=== PATIENT | male | born 1955 | race Caucasian/White ===

== ENCOUNTER 2017-05-24 16:14 | Inpatient (IN) ==
--- OUTSIDE RECORDS SUMMARY | 2017-05-24 16:41 | External Medical Summary | Referral Summary ---
:1955 Author Organization [facility] Address [address] [place] [address] Care Team Providers Name Role Phone Tanvir Mobley Primary Care Physician Encounter VC Date(s): 05/15/16 - 05/15/16 [facility] [address] [place] [address]- us Discharge Diagnosis: Syncope Discharge Diagnosis: Mild depression Discharge Diagnosis: Anxiety Discharge Diagnosis: Memory loss of Discharge Diagnosis: Anemia Discharge Diagnosis: Hypokalemia Discharge Disposition: 01-Home or Self Care Attending Physician: Tanvir Mobley MD Admitting Physician: Tanvir Mobley MD Vital Signs Most recent to oldest [Reference Range]: 1 Peripheral Pulse Rate [60-100 bpm] 80 bpm (05/15/16 2:34 PM) Blood Pressure [90-140/60-90 mmHg] 106/80 mmHg (05/15/16 2:34 PM) Problem List No data available for this section Allergies, Adverse Reactions, Alerts No Known Medication Allergies Medications Centrum Adults 1 tabs, Oral, Daily, Men formula, 0 Refill(s) Start Date: 05/15/16 Status: OrderedNamenda XR 14 mg, Oral, Daily, 0 Refill(s) Start Date: 05/15/16 Status: Orderedsertraline 50 mg oral tablet 50 mg 1 tabs, Oral, Daily, 0 Refill(s) Start Date: 05/15/16 Status: Ordered Results Hematology Most recent to oldest [Reference Range]: 1 WBC [4.8-10.8 10*3/uL] 5.0 10*3/uL (05/15/16 3:46 PM) RBC [4.60-6.20] 4.73 (2/24/17 3:46 PM) Hgb [14.0-18.0 gm/dL] 14.9 gm/dL (05/15/16 3:46 PM) Hct [42.0-52.0 %] 43.1 % (05/15/16 3:46 PM) MCV [82.0-99.0 fL] 91.1 fL (05/15/16 3:46 PM) MCH [27.0-32.0 pg] 31.5 pg (05/15/16 3:46 PM) MCHC [32.0-36.0 gm/dL] 34.6 gm/dL (05/15/16 3:46 PM) RDW [11.5-14.5 %] 13.0 % (05/15/16 3:46 PM) Platelet [150-400 10*3/uL] 170 10*3/uL (05/15/16 3:46 PM) MPV [8.8-14.8 fL] 9.3 fL (05/15/16 3:46 PM) Immature Granulocytes [0.0-1.0 %] 0.0 % (05/15/16 3:46 PM) Neutrophils [51-75 %] 58 % (05/15/16 3:46 PM) Lymphocytes [20-46 %] 29 % (05/15/16 3:46 PM) Monocytes [4-11 %] 9 % (05/15/16 3:46 PM) Eosinophils [0-4 %] 3 % (05/15/16 3:46 PM) Basophils [0-2 %] 1 % (05/15/16 3:46 PM) Neutro Absolute [1.90-7.00] 2.88 (05/15/16 3:46 PM) Lymph Absolute [0.80-3.30] 1.45 (05/15/16 3:46 PM) [place] Absolute [0.30-1.00] 0.47 (05/15/16 3:46 PM) Eos Absolute [0.00-0.50] 0.17 (05/15/16 3:46 PM) Baso Absolute [0.00-0.20] 0.04 (05/15/16 3:46 PM) Chemistry Most recent to oldest [Reference Range]: 1 Sodium Lvl [135-144 mEq/L] 141 mEq/L (05/15/16 3:46 PM) Potassium Lvl [3.5-5.2 mEq/L] 4.3 mEq/L (05/15/16 3:46 PM) Chloride [99-111 mEq/L] 106 mEq/L (05/15/16 3:46 PM) CO2 [23-31 mEq/L] 26 mEq/L (05/15/16 3:46 PM) AGAP [3-20] 9 (05/15/16 3:46 PM) BUN [8-26 mg/dL] 17 mg/dL (05/15/16 3:46 PM) Glucose Lvl [70-99 mg/dL] 80 mg/dL (05/15/16 3:46 PM) Creatinine Lvl [0.72-1.25 mg/dL] 0.93 mg/dL (05/15/16 3:46 PM) eGFR [>60 mL/min] >60 mL/min 1 (05/15/16 3:46 PM) Calcium Lvl [8.4-10.2 mg/dL] 9.2 mg/dL 2 (05/15/16 3:46 PM) Albumin Lvl [3.4-4.8 gm/dL] 4.3 gm/dL (05/15/16 3:46 PM) Total Protein [6.0-7.6 gm/dL] 6.9 gm/dL (05/15/16 3:46 PM) Globulin [1.8-4.0 gm/dL] 2.6 gm/dL (05/15/16 3:46 PM) ALT [0-55 U/L] 47 U/L (05/15/16 3:46 PM) AST [5-34 U/L] 48 U/L *HI* (05/15/16 3:46 PM) Alk Phos [40-150 U/L] 45 U/L (05/15/16 3:46 PM) Bili Total [0.2-1.2 mg/dL] 1.4 mg/dL *HI* (05/15/16 3:46 PM) Vitamin B12 Lvl [213-816 pg/mL] 630 pg/mL (05/15/16 3:46 PM) PSA (wihout Reflex Free) [0.0-4.5 ng/mL] 1.0 ng/mL 3 (05/15/16 3:46 PM) LDL Direct [0-129 mg/dL] 180 mg/dL *HI* (05/15/16 3:46 PM) TSH with Reflex Free T4 [0.35-4.94] 1.38 (05/15/16 3:46 PM) 1Result Comment: Multiply eGFR results by 1.21 for race.2Result Comment: Please note reference range change effective 2016.3Result Comment: AUA PSA Best Practice Guidelines: Age-Adjusted PSA Values by Ethnic Group Age Range Asians - Caucasians Americans 40-49 0-2.0 0-2.0 0-2.5 50-59 0-3.0 0-4.0 0-3.5 60-69 0-4.0 0-4.5 0-4.5 70-79 0-5.0 0-5.5 0-6.5Urinalysis Most recent to oldest [Reference Range]: 1 UA Color Yellow (05/15/16 3:46 PM) UA Appear Clear (05/15/16 3:46 PM) UA pH [5.0-8.0] 7.5 (05/15/16 3:46 PM) UA Leuk Est [Negative] Negative (05/15/16 3:46 PM) UA Nitrite [Negative] Negative (05/15/16 3:46 PM) UA Protein [Negative] Negative (05/15/16 3:46 PM) UA Glucose [Negative] Negative (05/15/16 3:46 PM) UA Ketones [Negative] Negative (05/15/16 3:46 PM) UA Urobilinogen [<1.0 mg/dL] 0.2 mg/dL (05/15/16 3:46 PM) UA Bili [Negative] Negative (05/15/16 3:46 PM) UA Blood [Negative] Negative (05/15/16 3:46 PM) UA Spec Grav [1.003-1.030] 1.019 (05/15/16 3:46 PM) Type Clean Catch (05/15/16 3:46 PM) Immunizations Given and Recorded Vaccine Date Status Refusal Reason tetanus/diphth/pertuss (Tdap) adult/adol 05/15/16 Given Procedures Procedure Date Related Diagnosis Body Site Tonsillectomy and adenoidectomy Social History Social History Type Response Smoking Status Former smoker; Type: Cigarettes; Tobacco use per day: 1/2 pack or more; Number of years: 10; Date Last Use: 2008; Stopped at age: 2008 Assessment and Plan Extracted from: Title: Office Visit Note Author: Tanvir Mobley MD Date: 05/15/16 Assessment/Plan 1.Memory loss of He apparently has some problems with memory loss and the long history of somemental disorderof which a diagnosis is notavailable today. After I completed my workup I will suggest that he establish withpsychiatry somewhere fora definitive diagnosis regarding the concerns for his mental health. I'll see him back in a few weeks to do a many mental state exam and review lab results w ith him. If he indeed assignificant memory loss I'll order an MRI. Ordered: CBC w/ Differential Comprehensive Metabolic Panel LDL Direct Office Visit Level 5 New 76948 Prostate Specific Antigen Return to Clinic RPR TSH with Reflex Free T4 Urinalysis with Culture if Indicated Vitamin B12 Level 2.Anemia I'll recheck the anemia that I noted in his record here. He needs colonoscopy since he's never had one done and his father age 42 colon cancer. Ordered: CBC w/ Differential Comprehensive Metabolic Panel Internal Referral to Gastroenterology LDL Direct Office Visit Level 5 New 46798 Return to Clinic TSH with Reflex Free T4 Vitamin B12 Level 3.Hypokalemia Ordered: Comprehensive Metabolic Panel LDL Direct Office Visit Level 5 New 37001 TSH with Reflex Free T4 Urinalysis with Culture if Indicated 4.Syncope Basic lab workto reevaluate his history of syncopal episode. Ordered: CBC w/ Differential Comprehensive Metabolic Panel LDL Direct Office Visit Level 5 New 73496 TSH with Reflex Free T4 5.Anxiety Anxiety disorder to be addressed at a later date he certainly is in no acutedistress today regarding anxiety. Ordered: LDL Direct Office Visit Level 5 New 39930 Return to Clinic TSH with Reflex Free T4 6.Mild depression Depression to be addressed at a later date as well. We willcontact GI for colonoscopy. Tetanus booster with pertussis today. I did accomplish a comprehensivenew patientchart review,o btaining history, and exam todayand I'll see him back in a few weeks. Ordered: LDL Direct Office Visit Level 5 New 07031 TSH with Reflex Free T4 Referrals to Other Providers Referred by: Tanvir Mobley MD colonoscopy, referred to: Stephanie Almonte III, MD Referred by: Tanvir Mobley MD
--- OUTSIDE RECORDS SUMMARY | 2017-05-24 16:41 | External Medical Summary | Referral Summary ---
:1955 Author Organization [facility] Address [address] [place] [address] Care Team Providers Name Role Phone Tanvir Mobley Primary Care Physician Encounter VC Date(s): 05/29/16 - 05/29/16 [facility] [address] [place] [address]- [place] Discharge Diagnosis: Chest pain Discharge Diagnosis: Pure hypercholesterolemia Discharge Diagnosis: Mild depression Discharge Diagnosis: Anxiety Discharge Diagnosis: Memory loss of Discharge Disposition: 01-Home or Self Care Attending Physician: Tanvir Mobley MD Admitting Physician: Tanvir Mobley MD Vital Signs Most recent to oldest [Reference Range]: 1 Peripheral Pulse Rate [60-100 bpm] 80 bpm (05/29/16 1:37 PM) Blood Pressure [90-140/60-90 mmHg] 134/84 mmHg (05/29/16 1:37 PM) Problem List No data available for this section Allergies, Adverse Reactions, Alerts No Known Medication Allergies Medications Centrum Adults 1 tabs, Oral, Daily, Men formula, 0 Refill(s) Start Date: 05/15/16 Status: OrderedNamenda XR 14 mg, Oral, Daily, 0 Refill(s) Start Date: 05/15/16 Status: Orderedsertraline 50 mg oral tablet 50 mg 1 tabs, Oral, Daily, 0 Refill(s) Start Date: 05/15/16 Status: Ordered Results No data available for this section Immunizations Given and Recorded Vaccine Date Status [...] Visit Note Author: Tanvir Mobley MD Date: 05/29/16 Assessment/Plan 1.Memory loss of He appears to have significant short-term memory loss and is not oriented. He is on Namenda at 14 mg. His sister we'll check with the [facility] to try and get this increased to 21 m g. I'll recheck him in this regard in 4 months. Ordered: Office Visit Level 4 Est 48374 Return to Clinic 2.Chest pain He probably deserves a stress test in regards to his atypical chest pain. We will ask for astandardstress treadmill test. I'll let him know the results. Ordered: Office Visit Level 4 Est 88565 Request for Cardiovascular Stress Test Return to Clinic 3.Anxiety The anxiety disorder will be followed up by the [facility]. Ordered: Office Visit Level 4 Est 25166 Return to Clinic 4.Pure hypercholesterolemia I did tell him to consider a statin drug for his hypercholesterolemia. He did not agree to starting this today. Ordered: Office Visit Level 4 Est 76067 Return to Clinic 5.Mild depression He'll continue his generic Zoloft for this and follow-up at the [facility]. Ordered: Office Visit Level 4 Est 44020 Return to Clinic Referrals to Other Providers Referred by: Tanvir Mobley MD
--- OUTSIDE RECORDS SUMMARY | 2017-05-24 16:41 | External Medical Summary | Referral Summary ---
:1955 Author Organization [facility] Address [address] [place] [address] Care Team Providers Name Role Phone No PCP, Pt States Primary Care Physician Encounter [facility] [id number] Date(s): 01/12/16 - 01/12/16 [facility] [address] [address], [place] [address] Discharge Diagnosis: Panic attacks Discharge Diagnosis: Confusion Discharge Diagnosis: Confusion Discharge Diagnosis: Panic attacks Discharge Disposition: 01-Home or Self Care Attending Physician: Afshin Marie MD Admitting Physician: Afshin Marie MD Vital Signs Most recent to oldest [Reference Range]: 1 Temperature Oral [35.8-37.3 degC] 36.3 degC (01/12/16 5:09 PM) Peripheral Pulse Rate [60-100 bpm] 98 bpm (01/12/16 8:02 PM) Respiratory Rate [14-20 br/min] 18 br/min (01/12/16 8:02 PM) Blood Pressure [90-140/60-90 mmHg] 126/82 mmHg (01/12/16 8:02 PM) SpO2 98 % (01/12/16 8:02 PM) Problem List No data available for this section Allergies, Adverse Reactions, Alerts No data available for this section Medications No data available for this section Results Hematology Most recent to oldest [Reference Range]: 1 WBC [4.8-10.8 10*3/uL] 4.7 10*3/uL *LOW* (01/12/16 6:37 PM) RBC [4.60-6.20] 4.23 *LOW* (01/12/16 6:37 PM) Hgb [14.0-18.0 gm/dL] 13.5 gm/dL *LOW* (01/12/16 6:37 PM) Hct [42.0-52.0 %] 37.9 % *LOW* (01/12/16 6:37 PM) MCV [82.0-99.0 fL] 89.6 fL (01/12/16 6:37 PM) MCH [27.0-32.0 pg] 31.9 pg (01/12/16 6:37 PM) MCHC [32.0-36.0 gm/dL] 35.6 gm/dL (01/12/16 6:37 PM) RDW [11.5-14.5 %] 12.7 % (01/12/16 6:37 PM) Platelet [150-400 10*3/uL] 152 10*3/uL (01/12/16 6:37 PM) MPV [9.4-12.3 fL] 9.1 fL *LOW* (01/12/16 6:37 PM) Immature Granulocytes [0.0-1.0 %] 0.0 % (01/12/16 6:37 PM) Neutrophils [51-75 %] 70 % (01/12/16 6:37 PM) Lymphocytes [20-46 %] 20 % (01/12/16 6:37 PM) Monocytes [4-11 %] 8 % (01/12/16 6:37 PM) Eosinophils [0-4 %] 2 % (01/12/16 6:37 PM) Basophils [0-2 %] 0 % (01/12/16 6:37 PM) Neutro Absolute [1.90-7.00 10*3] 3.28 10*3 (01/12/16 6:37 PM) Lymph Absolute [0.80-3.30 10*3] 0.94 10*3 (01/12/16 6:37 PM) [place] Absolute [0.30-1.00 10*3] 0.35 10*3 (01/12/16 6:37 PM) Eos Absolute [0.00-0.50 10*3] 0.07 10*3 (01/12/16 6:37 PM) Baso Absolute [0.00-0.20 10*3] 0.02 10*3 (01/12/16 6:37 PM) Chemistry Most recent to oldest [Reference Range]: 1 Sodium Lvl [136-144 mEq/L] 138 mEq/L (01/12/16 6:37 PM) Potassium Lvl [3.6-5.1 mEq/L] 3.4 mEq/L *LOW* (01/12/16 6:37 PM) Chloride [99-109 mEq/L] 103 mEq/L (01/12/16 6:37 PM) CO2 [22-32 mEq/L] 25 mEq/L (01/12/16 6:37 PM) AGAP [3-20] 10 (01/12/16 6:37 PM) BUN [4-20 mg/dL] 12 mg/dL (01/12/16 6:37 PM) Glucose Lvl [70-100 mg/dL] 88 mg/dL (01/12/16 6:37 PM) Creatinine Lvl [0.64-1.27 mg/dL] 0.97 mg/dL (01/12/16 6:37 PM) eGFR [>60] >60 1 (01/12/16 6:37 PM) Calcium Lvl [8.6-10.0 mg/dL] 8.8 mg/dL (01/12/16 6:37 PM) Albumin Lvl [3.5-4.8 gm/dL] 4.2 gm/dL (01/12/16 6:37 PM) Total Protein [6.1-7.9 gm/dL] 6.6 gm/dL (01/12/16 6:37 PM) Globulin [1.9-4.3 gm/dL] 2.4 gm/dL (01/12/16 6:37 PM) ALT [17-63 U/L] 22 U/L (01/12/16 6:37 PM) AST [15-41 U/L] 29 U/L (01/12/16 6:37 PM) Alk Phos [26-104 U/L] 35 U/L (01/12/16 6:37 PM) Bili Total [0.2-1.2 mg/dL] 2.4 mg/dL 2 *HI* (01/12/16 6:37 PM) 1Result Comment: Multiply eGFR results by 1.21 for race.2Result Comment: Naproxen, specifically the metabolite O-desmethylnaproxen, may cause spurious elevation in Total Bilirubin levels.Toxicology Most recent to oldest [Reference Range]: 1 Ethanol Lvl None Detected (01/12/16 6:37 PM) Immunizations No data available for this section Procedures No data available for this section Social History Social History Type Response Smoking Status Former smoker Assessment and Plan No data available for this section
--- OUTSIDE RECORDS SUMMARY | 2017-05-24 16:42 | External Medical Summary | Continuity of Care Document ---
:1955 Demographics x Preferred Language Unknown Marital Status Unknown Adventist Affiliation Unknown Race Unknown Ethnic Group Unknown Author Organization [facility] Allergies Active Description Code Type Severity Reaction Onset Reported/ Identified Relationship Clinical to Patient Status Yes No Known NKA MED N/A N/A 01/13/2016 Allergies Medications Medication Packaging Start Date Stop Date Route Dosage Sig 01/13/2016 ORAL 50MG Sertraline HCl 7 Take 1 po 50 MG Oral daily in the Tablet am. 01/13/2016 ORAL 5MG Namenda 5 MG 7 Take 1 po Oral Tablet daily X 3-5 days, then increase to BID dosing. 02/17/2016 ORAL 50MG Sertraline HCl 7 Take 1 po 50 MG Oral daily in the Tablet am. 04/20/2016 ORAL 50MG Sertraline HCl 7 Take 1 po 50 MG Oral daily in the Tablet am. 06/26/2016 ORAL 50MG Sertraline HCl 7 Take 1 po 50 MG Oral daily in the Tablet am. 09/23/2016 ORAL 50MG Sertraline HCl 7 Take 1 po 50 MG Oral daily in the Tablet am. 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, Batch disorder, recurrent severe without psychotic features 01/10/2016 F G31.84 Mild cognitive Payton Mullen impairment, so stated 01/10/2016 F J45.31 Mild persistent Payton Mullen asthma with (acute) exacerbation 01/10/2016 F R25.1 Tremor, unspecified Payton Mullen 01/10/2016 F Z59.6 Low income Payton Mullen 01/10/2016 F Z59.7 Insufficient social Payton Mullen insurance and welfare support 01/10/2016 F Z63.4 Disappearance and Patyon Mullen of family member 01/10/2016 F Z65.8 Other specified Payton Mullen problems related to psychosocial circumstances 01/13/2016 F 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 J Luis Martinez L disorder, recurrent severe without psychotic features 01/13/2016 F G31.84 Mild cognitive J Luis Martinez L impairment, so stated 01/13/2016 F J45.31 Mild persistent J Luis Martinez L asthma with (acute) exacerbation 01/13/2016 F Z59.6 Low income J Luis Martinez L 01/13/2016 F G31.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 cognitive Psy, Batch impairment, so stated 01/13/2016 F J45.31 Mild persistent Psy, Batch asthma with (acute) exacerbation 01/13/2016 F Z59.6 Low income Psy, Batch 01/14/2016 F 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, Batch disorder, recurrent severe without psychotic features 01/14/2016 F G31.84 Mild cognitive Payton Mullen Darlene impairment, so stated 01/14/2016 F J45.31 Mild persistent Payton Mullen asthma with (acute) exacerbation 01/14/2016 F R25.1 Tremor, unspecified Payton Mullen Darlene 01/14/2016 F Z59.6 Low income Payton Mullen Darlene 01/14/2016 F Z59.7 Insufficient social Payton Mullen insurance and welfare support 01/14/2016 F Z63.4 Disappearance and Payton Mlulen of family member 01/14/2016 F Z65.8 Other specified MullenPayton Darlene problems related to psychosocial circumstances 02/17/2016 F 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 Serna, Suyapa disorder, recurrent severe without psychotic features 02/17/2016 F G31.84 Mild cognitive Serna, Suyapa impairment, so stated 02/17/2016 F J45.31 Mild persistent Serna, Usyapa asthma with (acute) exacerbation 02/17/2016 F Z59.6 Low income Serna, Suyapa 02/17/2016 F G31.84 Mild cognitive Psy, Batch impairment, so stated 02/17/2016 F J45.31 Mild persistent Psy, Batch asthma with (acute) exacerbation 02/17/2016 F Z59.6 Low income Psy, Batch 02/17/2016 F 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, Batch disorder, recurrent severe without psychotic features 02/17/2016 F G31.84 Mild cognitive Payton Mullen impairment, so stated 02/17/2016 F J45.31 Mild persistent Payton Mullen asthma with (acute) exacerbation 02/17/2016 F R25.1 Tremor, unspecified Shadia Mullencam Colon 02/17/2016 F Z59.6 Low income Payton Mullen Darlene 02/17/2016 F Z59.7 Insufficient social Payton Mullen insurance and welfare support 02/17/2016 F Z63.4 Disappearance and Shadia Mullencam Colon of family member 02/17/2016 F Z65.8 Other specified Shadia Mullencam Colon problems related to psychosocial circumstances 04/20/2016 F 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 Serna, Suyapa disorder, recurrent severe without psychotic features 04/20/2016 F G31.84 Mild cognitive Serna, Suyapa impairment, so stated 04/20/2016 F J45.31 Mild persistent Serna, Suyapa asthma with (acute) exacerbation 04/20/2016 F Z59.6 Low income Serna, Suyapa 04/20/2016 F G31.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 cognitive Psy, Batch impairment, so stated 04/20/2016 F J45.31 Mild persistent Psy, Batch asthma with (acute) exacerbation 04/20/2016 F Z59.6 Low income Psy, Batch 04/22/2016 F 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, Batch disorder, recurrent severe without psychotic features 06/26/2016 F 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 Serna, Syuapa disorder, recurrent severe without psychotic features 06/26/2016 F G31.84 Mild cognitive Serna, Suyapa impairment, so stated 06/26/2016 F J45.31 Mild persistent Serna, Suyapa asthma with (acute) exacerbation 06/26/2016 F Z59.6 Low income Serna, Suyapa 06/26/2016 F G31.84 Mild cognitive Psy, Batch impairment, so stated 06/26/2016 F J45.31 Mild persistent Psy, Batch asthma with (acute) exacerbation 06/26/2016 F Z59.6 Low income Psy, Batch 06/26/2016 F 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, Batch disorder, recurrent severe without psychotic features 09/23/2016 F 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 Melugin, Vickie disorder, recurrent R severe without psychotic features 09/23/2016 F G31.84 Mild cognitive Melugin, Vickie impairment, so R stated 09/23/2016 F J45.31 Mild persistent Melugin, Vickie asthma with (acute) R exacerbation 09/23/2016 F R25.1 Tremor, unspecified Melugin, Vickie R 09/23/2016 F Z59.6 Low income Melugin, Vickie R 09/23/2016 F Z59.7 Insufficient social Melugin, Vickie insurance and R welfare support 09/23/2016 F Z63.4 Disappearance and Melugin, Vickie of family R member 09/23/2016 F Z65.8 Other specified Melugin, Vickie problems related to R psychosocial circumstances 09/23/2016 F 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 West, Aspen M disorder, recurrent severe without psychotic features 09/23/2016 F G31.84 Mild cognitive West, Aspen M impairment, so stated 09/23/2016 F J45.31 Mild persistent West, Aspen M asthma with (acute) exacerbation 09/23/2016 F Z59.6 Low income Aspen Bonilla M 09/23/2016 F 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, Batch disorder, recurrent severe without psychotic features 09/23/2016 F G31.84 Mild cognitive Psy, Batch impairment, so stated 09/23/2016 F J45.31 Mild persistent Psy, Batch asthma with (acute) exacerbation 09/23/2016 F Z59.6 Low income Psy, Batch Procedures Code Description [place] [address] Payton Mullen 01/10/2016 22003 Payton Mullen 01/10/2016 22342 Lona Parra 01/13/2016 OFFICE/OUTPAT[place] [address] Melugin, Vickie R 02/17/2016 OFFICE/OUTPATIENT [place], [place] 21766 Melugin, Vickie R 02/17/2016 OFFICE/OUTPATIENT VISIT, [place] 42869 Melugin, Vickie R 04/20/2016 OFFICE/OUTPATIENT [place], [place] 47257 Melugin, Vickie R 04/20/2016 OFFICE/OUTPATIENT VISIT, EST 46856 Melugin, Vickie R 06/26/2016 OFFICE/OUTPATIENT VISIT, EST 91977 Vickie Valdez 06/26/2016 OFFICE/OUTPATIENT VISIT, [place] 22494 Vickie Valdez 09/23/2016 OFFICE/OUTPATIENT VISIT, [place] 64363 Vickie Valdez 09/23/2016 OFFICE/OUTPATIENT VISIT, EST Results There is no data. Encounters ACCT No. Visit Discharge Status Pt. Type Provider Facility Loc./Unit Complaint Date/Time [id number] 09/23/2016 09/23/2016 DIS Unknown 13:40:00 14:00:00
--- NOTE | 2017-05-24 17:32 | Emergency Department Report ---
Medical Clearance HPI - General Chief complaint: Medical Clearance Stated complaint: [facility] Clear[facility] Time Seen by Provider: 05/24/17 17:10 Source: RN notes reviewed, other Mode of arrival: ambulatory Limitations: no limitations - History of Present Illness HPI Narrative: Pt presents from OR for medical clearance for admit to [facility]. [facility] has already approved admission. Pt has been having some aggressive behavior towards other residents and has been increasingly argumentative for a few weeks. Pt fell at OR 4 days ago with superficial injuries to his face which was evaluated by OR staff at that time. Pt complained of right rib pain to nursing staff that when evaluated is questionable for shingles. MD complaint: medical clearance requested Home medications: Home Medications Medication Instructions Recorded Confirmed ALPRAZolam [Xanax] 0.5 mg PO BID PRN 05/24/17 05/24/17 Acetaminophen [Tylenol] 650 mg PO Q4H PRN 05/24/17 05/24/17 CALCIUM CARBONATE Chewable [Tums] 1,000 mg PO TID PRN 05/24/17 05/24/17 Memantine HCl [Namenda Xr] 14 mg PO DAILY 05/24/17 05/24/17 Milk of Magnesia [Mom] 45 ml PO DAILY PRN 05/24/17 05/24/17 Multivit-Min/FA/Lycopen/Lutein 1 each PO DAILY 05/24/17 05/24/17 [Certavite Sr-Antioxidant Tab] Sertraline [Zoloft] 50 mg PO DAILY 05/24/17 05/24/17 Allergies/Adverse reactions: Allergies Allergy/AdvReac Type Severity Reaction Status Date / Time No Known Allergies Allergy Verified 05/24/17 16:45 Review of Systems Limitations: ROS unobtainable due to patient's medical condition [facility] Patient Stated Medical History Dementia Yes Depression Yes Physical Exam Pt with flat affect and gives limited answers to questions - General General appearance: alert, in no apparent distress - Normal Exams: Eyes:: Pupils are PERRLA w/ EOMI Neck:: Full range of motion, without adenopathy Chest/Respirations:: Clear all david, with good airflow, and symmetry bilaterally Cardiovascular:: Regular rate and rhythm, without murmur or gallop, Pulses 2+ all extremities, capillary refill, <2 seconds all extremities Abdomen:: Bowel sounds positive, soft, non-tender, non-distended Musculoskeletal:: No tenderness, or deformity noted, good range of motion, all extremities Integumentary:: No rashes Neurological:: Patient is alert, and oriented, cranial nerves, motor/sensory/ cerebellar, exams w/o gross deficits, to observation Psychiatric:: Patient exhibits, appropriate attention, emotion and affect - Expanded Head Exam Head exam physical: Present: abrasion, contusion (to forehead, nose and right eye) - Skin Skin exam: Present: warm, dry - Expanded Skin Exam Type of lesion: Present: rash Distribution: chest, back Description: Present: blisters, crusting. Absent: discharge (Rash extends from mid thoracic spine to right ribs. Consistent with shingles) Course Vital Signs Temperature 97.9 F 05/24/17 16:28 Pulse Rate 73 05/24/17 16:28 Respiratory Rate 14 05/24/17 16:28 Blood Pressure 116/70 05/24/17 16:28 Pulse Oximetry 94 05/24/17 16:28 Temperature 97.9 F 05/24/17 16:28 Pulse Rate 67 05/24/17 17:47 Respiratory Rate 16 05/24/17 17:47 Blood Pressure 119/70 05/24/17 17:47 Pulse Oximetry 95 05/24/17 17:47 Medical Clearance - [facility] Narrative Medical decision making narrative: Lab and CT results reviewed. Discussed shingles diagnosis with hospitalist to determine if OK to go to [facility] with shingles which was approved. Pt does not note any active pain with palpation to shingles rash leading to questions of length of presence although OR staff does not report any notation of rash. CT head performed to rule out traumatic bleed 2/2 fall, noted to be negative for acute findings. Pt to transfer to [facility] - Differential Diagnosis Likely: urinary tract infection (depression, anxiety, dementia, SAB) - Lab Data Attestation: I reviewed the patient's lab results. Result diagrams: 05/24/17 17:05/24/17 17: Lab Results 05/24/17 05/24/17 05/24/17 Range/Units 17: 17:05 17:05 WBC 5.2 (4.5-11.0) T/MM3 RBC 4.27 L (4.50-5.90) M/MM3 Hgb 13.3 L (13.5-17.5) GM/DL Hct 38.7 L (41-53) % MCV 90.6 (80-100) UM3 MCH 31.1 (26-34) UUG MCHC 34.4 (31-37) GM/DL RDW Std Deviation 44.0 (36.9-50.2) FL Plt Count 162 (130-400) T/MM3 MPV 8.8 L (9.4-12.4) UM3 Immature Gran % (Auto) Not performed Neut % (Auto) Not performed Lymph % (Auto) Not performed [place] % (Auto) Not performed Eos % (Auto) Not performed Baso % (Auto) Not performed Neut # (Auto) Not performed Lymph # (Auto) Not performed [place] # (Auto) Not performed Eos # (Auto) Not performed Baso # (Auto) Not performed Abs Immat Gran (auto) Not performed Neutrophils % (Manual) 62.0 (33-66) % Band Neutrophils % 1.0 (0-6) % Lymphocytes % (Manual) 21.0 L (23-45) % Monocytes % (Manual) 13.0 H (0-9.0) % Eosinophils % (Manual) 3.0 (0-4) % Neutrophils # (Manual) 3.2 (1.8-7.7) T/MM3 Band Neutrophils # 0.1 T/MM3 Lymphocytes # (Manual) 1.1 (1-4.8) T/MM3 Monocytes # (Manual) 0.7 (0-0.8) T/MM3 Eosinophils # (Manual) 0.2 (0-0.5) T/MM3 RBC Morph Comment Normal Turbidity < 20 (0-20) Sodium 142 (134-144) MEQ/L Potassium 4.6 (3.6-5) MEQ/L Chloride 103 (98-107) MEQ/L Carbon Dioxide 29 (22-30) MEQ/L Anion Gap 10 (5-15) MEQ/L BUN 18.0 (9-20) MG/DL Creatinine 1.0 (0.8-1.5) mg/dL GFR Calculation 76 BUN/Creatinine Ratio 18 (6-26) RATIO Glucose 99 (75-110) MG/DL Calculated Osmolality 275 (261-280) MOSM/KG Calcium 9.1 (8.4-10.2) MG/DL Total Bilirubin 1.00 (0.20-1.30) MG/DL Icterus Index < 2 (0-7) AST 28 (17-59) U/L ALT 38 (21-72) U/L Alkaline Phosphatase 50 (38-126) U/L Total Protein 7.7 (6.3-8.2) g/dL Albumin 4.2 (3.5-5.0) g/dL Globulin 3.5 (2.4-3.6) G/DL Albumin/Globulin Ratio 1.2 (1.1-2.2) RATIO Specimen Hemolysis < 15 (0-25) Ur Collection Type Urine, cath straight Urine Color Yellow (YELLOW) Urine Clarity Clear Urine pH 5.5 (5.0-8.0) Ur Specific [place] 1.025 (1.015-1.025) Urine Protein Negative (NEGATIVE) Urine Glucose (UA) Negative (NEGATIVE) Urine Ketones Negative (NEGATIVE) Urine Occult Blood 1+ A (NEGATIVE) Urine Nitrate Negative (NEGATIVE) Urine Bilirubin Negative (NEGATIVE) Urine Urobilinogen 0.2 (NORMAL) EU/DL Ur Leukocyte Esterase Negative (NEGATIVE) Urine RBC 0-1 (0-3) /HPF Urine WBC 3-5 (0-5) /HPF Ur Squamous Epith Cells 0-5 Urine Bacteria Trace H (NEGATIVE) Ur Culture Indicated? Cult not indicated - Radiology Data Attestation: I reviewed the patient's radiology results. (read per V rad) Disposition Clinical Impression: Aggressive behavior Shingles Qualifiers: Herpes zoster complications: without complications Qualified Code(s): B02.9 - Zoster without complications Disposition: 65 To [facility] Condition: Stable Prescriptions: No Action Acetaminophen [Tylenol] 650 mg PO Q4H PRN PRN Reason: Pain Sertraline [Zoloft] 50 mg PO DAILY ALPRAZolam [Xanax] 0.5 mg PO BID PRN PRN Reason: Anxiety Memantine HCl [Namenda Xr] 14 mg PO DAILY Milk of Magnesia [Mom] 45 ml PO DAILY PRN PRN Reason: Constipation CALCIUM CARBONATE Chewable [Tums] 1,000 mg PO TID PRN PRN Reason: Prn Orders Multivit-Min/FA/Lycopen/Lutein [Certavite Sr-Antioxidant Tab] 1 each PO DAILY Time of Disposition: 18:47 - Seen By: midlevel
[2017-05-24] MEDS ORDERED: HALOPERIDOL 0.5 MG TABLET PO PRN (19:16)
[2017-05-24] MEDS ORDERED: LORazepam 0.5 MG TABLET PO PRN (19:16)
[2017-05-24] MEDS ORDERED: ACETAMINOPHEN 325 MG TABLET PO PRN (19:16)
[2017-05-24] MEDS ORDERED: HALOPERIDOL 5 MG/ML INJECTION IM PRN (19:16)
[2017-05-24] MEDS ORDERED: ALPRAZolam 0.5 MG TABLET PO PRN (19:16)
[2017-05-24] MEDS ORDERED: CALCIUM CARBONATE Chewable 500mg TABLET PO PRN (19:16)
[2017-05-24 19:22] VITALS: BMI 32.3
--- NOTE | 2017-05-25 08:01 | CT Scan Report ---
Indication: fall PROCEDURE: CT head/brain wo con: Encounter: Initial Comparison: None Technique: Axial CT images through the head were performed without contrast. Iterative Reconstruction dose reducing technique was utilized. FINDINGS: The ventricles are of normal size, shape, and configuration for the patient's age. Cavum septa pellucidum noted incidentally. There is no evidence of acute intracranial hemorrhage, midline displacement, or mass effect. There are scattered areas of low attenuation in the white matter which most likely represent changes of chronic microvascular ischemia. The CT attenuation of the brain parenchyma is otherwise normal within the cerebellum, brain stem, and cerebral hemispheres. The tympanic cavities and mastoid air cells are free of appreciable disease. There are no definite fractures of the skull base, calvarium, or visualized portion of the midface. IMPRESSION: No CT evidence of acute traumatic intracranial injury. There is a preliminary report by [facility]. .
--- NOTE | 2017-05-25 08:27 | History & Physical Report ---
History of Present Illness Date: 05/29/17 Chief complaint: "Trying to find something to do" HPI: Daniel Phipps is a 61 y/o male w/ a hx of dementia, admitted to [facility] on 05/24 from [facility] for exhibiting child-like behavior ie pouring milk on people's plates and throwing food. He has also been aggressive towards other residents and rude to staff. He was medically cleared through [facility], with lab work and CT head. Labs were overwhelmingly unremarkable with the exception of mild normocytic anemia. CT head upon this providers review failed to show any acute abnormalities, though official report is pending at the time of this H&P. Daniel was seen during breakfast time. He had healing abrasions and scabbed lesions to his face, primarily around his right eye, nose, and right forehead - though he was unable to comment on this. (Nursing staff report a fall on 05/21/17. ) He has a very flat and depressed affect and doesn't make good eye contact. He frequently endorses comments such as "I'm just an old man, trying to find something to do" and "I'm old and slow". He reports that he worked at [employer] from 1986 until 6 months ago, and was let go unexpectedly. He reports that he wishes he had the money back from all his years smoking. He denied any recent illnesses, fever or chills. He states that his appetite has been good (though he was observed just pushing his pancake around on his plate this morning) but occasionally has some ill-defined abdominal pain. He states that he's had chest pain twice in his life but he denies heart cath. He denies difficulty breathing. He states that his legs sometimes are swollen. He states that he's had the "normal" surgeries. He denied any medical problems. Review of Systems ROS unobtainable: due to mental status (poor historian) - Constitutional Constitutional: Absent: chills, fever(s) - EENMT Eyes: Absent: change in vision Nose: Absent: obstruction Mouth/Throat: Absent: sore throat, changes in swallowing - Cardiovascular Cardiovascular: Present: chest pain Vascular: Present: pedal edema - Respiratory Respiratory: Absent: cough, dyspnea - Gastrointestinal Gastrointestinal: Present: abdominal pain. Absent: constipation, diarrhea, nausea, vomiting - Genitourinary Genitourinary: Absent: dysuria - Musculoskeletal Musculoskeletal: Absent: muscle weakness - Integumentary/Breasts Integumentary: Present: wounds (facial wounds healing) - Neurological Neurological: Present: as per HPI - Psychiatric Psychiatric: Present: behavioral changes, depression - Endocrine Endocrine: Absent: flushing Past Medical History Hypercholesterolemia Depression Dementia Anxiety Obesity, BMI 32.4 Surgical History: Colonoscopy (07/2016). Tonsillectomy & adenoidectomy. Possible appendectomy Family History Updates: Patient reports that his father -- he was a smoker. His mother is still alive and doing well. His siblings are healthy except one sister is a smoker. Review of Dr. Mobley's records show that his father had colon cancer, mother had depression, and sister with HTN. - Social History Smoking status: Former smoker (1/2 ppd x 10 years, quit smoking in 2008) Substance use type: marijuana (pt reported he's smoked marijuana twice but in his record it indicates 1-2 times per week) Alcohol intake frequency: does not drink Current occupational status: previously employed Previous occupational history: [employer] Social history: PCP_Dr. Tanvir Mobley Medications Home Medications Medication Instructions Recorded Confirmed Type ALPRAZolam [Xanax] 0.5 mg PO BID PRN 05/24/17 05/24/17 History Acetaminophen [Tylenol] 650 mg PO Q4H PRN 05/24/17 05/24/17 History CALCIUM CARBONATE Chewable [Tums] 1,000 mg PO TID PRN 05/24/17 05/24/17 History Memantine HCl [Namenda Xr] 14 mg PO DAILY 05/24/17 05/24/17 History Milk of Magnesia [Mom] 45 ml PO DAILY PRN 05/24/17 05/24/17 History Multivit-Min/FA/Lycopen/Lutein 1 each PO DAILY 05/24/17 05/24/17 History [Certavite Sr-Antioxidant Tab] Sertraline [Zoloft] 50 mg PO DAILY 05/24/17 05/24/17 History Allergies Allergy/AdvReac Type Severity Reaction Status Date / Time No Known Allergies Allergy Verified 05/24/17 16:45 Exam Vital Signs: Temperature 97.6 F 05/24/17 19:23 Pulse Rate 72 05/24/17 19:23 Respiratory Rate 14 05/24/17 19:23 Blood Pressure 124/63 05/24/17 19:23 Pulse Oximetry 98 05/24/17 19:23 Height/Weight/BMI: Height 1.78 m Weight 102.3 kg Body Mass Index 32.3 - Constitutional Present: no acute distress, well nourished, well developed - Routine HEENT Exam Head: Present: normocephalic, abrasion (per HPI). Absent: atraumatic Eye: Present: PERRL. Absent: conjunctival icterus, scleral injection ENT: Present: mucous membranes dry, oropharynx clear - Routine Neck Exam Present: supple - Routine Respiratory Exam Present: CTA bilaterally - Routine Cardiovascular Exam Present: RRR, S1, S2 - Routine Abdominal Exam Present: soft, normoactive bowel sounds, non distended, non tender - Routine Extremities Exam Present: edema (trace edema around ankles) - Routine Skin Exam Present: intact, dry, warm - Routine Neurological Exam Present: alert, normal speech. Absent: oriented X3 - Routine Psychiatric Exam Absent: normal affect (flat & depressed) Results - Labs CBC & Chem 7: 05/27/17 07:18 05/27/17 07:18 Assessment and Plan (1) Aggressive behavior Current visit: Yes Status: Acute Assessment and Plan: IMPRESSION Normocytic anemia Facial abrasions, POA Hypercholesterolemia Depression Dementia Anxiety Obesity, BMI 32.4 PLAN Agree with admission to [facility]. Folate & Vit B12 pending. VSS, medically cleared. CT head reviewed - no acute findings. Provide safe & supportive environment. Note: reportedly had a rash consistent with resolving shingles. This was not observed on initial assessment since pt was in the dayroom. Addendum hospitalist note:Seen and examined patient on same day as the above note. Patient was sitting this evening in the day room. Agree with history, physical, assessment and plan. Comprehensive physical findings correlate to the above note. Subjective: patient denying any complaints of the epigastric pain he had earlier that day Objective: speech very delayed the patient and no apparent distress. Abdomen and chest wall have no tenderness. Chest clear to auscultation cardiovascular as well as to know adventitious murmurs rubs gallops extremity show no edema Assessment and plan: appears medically stable and well suited for placement in [facility] for the dementia with behavioral disorder Documented on Dragon speech to text. Efforts to correct speech recognition errors performed, but variation may exist Resuscitation Status: Full Code - Physician Narrative Narrative: Date: 05/25/17 Time: 820 Hospital Course Summary Disclaimer: The visit summary below is not to be considered part of the above Progress Note. Hospital Course: 05/[address] [facility]. Folate & Vit B12 pending. VSS, medically cleared. CT head reviewed - no acute findings. Provide safe & supportive environment.
[2017-05-25] MEDS: SERTRALINE 50 MG TABLET PO SCH (11:54)
[2017-05-25] MEDS: MEMANTINE 10 MG TABLET PO SCH (11:54)
[2017-05-25] MEDS: MULTI-VIT + MINERAL (Opti-gen) TABLET PO SCH (11:54)
[2017-05-25] MEDS: RisperiDONE ODT 0.5 MG TABLET PO SCH ×2 (12:34→20:08)
--- NOTE | 2017-05-25 13:50 | 24 Hour Neuropsychiatic Eval ---
Date of Admission: 05/24/17 18:47 Chief complaint: "I don't know" History of Present Illness: Patient is a 61-year-old male who was admitted to [facility] due to increased behaviors and bizarre child-like behavior (such as pouring milk on people's plates, throwing food) at [place]. He has also been aggressive towards others at the facility. Per hospitalist: "He was medically cleared through [facility], with lab work and CT head. Labs were overwhelmingly unremarkable with the exception of mild normocytic anemia. CT head upon this providers review failed to show any acute abnormalities, though official report is pending at the time of this H&P. He had healing abrasions and scabbed lesions to his face, primarily around his right eye, nose, and right forehead - though he was unable to comment on this. ( Nursing staff report a fall on 05/21/17.) He denied any recent illnesses, fever or chills. He states that his appetite has been good (though he was observed just pushing his pancake around on his plate this morning) but occasionally has some ill-defined abdominal pain. He states that he's had chest pain twice in his life but he denies heart cath. He denies difficulty breathing. He states that his legs sometimes are swollen. He states that he's had the "normal" surgeries. He denied any medical problems." On interview, patient is disorganized and able to participate in a limited fashion. He answers many of my questions logically/nonsensically. At one point, he makes a statement that he'll probably drown in the next week. I attempted to do FNF and he was unable to follow even simple directions. He denies all symptoms (SI, HI, AVH, paranoia) and says "I don't know" in regards too mood, why he is here, etc. He mumbles to himself and appears to be responding to internal stimuli though he denies it. No stiffness/EPS elicited upon physical exam. No gross tremor. CT +/- contrast on 05/24/17 showed incidental cavum septa pellucidum, signs of chronic microsvascular ischemia. Patient was reportedly hospitalized at [facility] in his 20s. He held a job at [employer] from 1986 to being let go unexpectedly 6 months ago. Home meds: Namenda XR 14mg daily, Xanax 0.5mg PO BID PRN, Zoloft 50mg daily. Nursing staff report patient was more restless this morning, mumbling to himself. He was given Ativan 0.5mg PO last night for increased anxiety, exit- seeking. Psychosis: Hallucinations/Illusions (suspected though patient denies), Disorganized speech, Disorganized behavior Dementia: Memory Impairment, Poor Executive Functioning [facility] Patient Stated Medical History Dementia Yes Depression Yes Surgical History: Colonoscopy (07/2016). Tonsillectomy & adenoidectomy. Possible appendectomy Family History Updates: Patient reports that his father -- he was a smoker. His mother is still alive and doing well. His siblings are healthy except one sister is a smoker. Review of Dr. Mobley's records show that his father had colon cancer, mother had depression, and sister with HTN. - Social History Smoking status: Former smoker (1/2 ppd x 10 years, quit smoking in 2008) Substance use type: marijuana (pt reported he's smoked marijuana twice but in his record it indicates 1-2 times per week) Alcohol intake frequency: does not drink Current occupational status: previously employed Previous occupational history: [employer] Social history: Strengths: has [facility], sister as DPOA Review of Systems ROS unobtainable: due to mental status - EENMT Nose: Absent: obstruction Mouth/Throat: Absent: sore throat, changes in swallowing - Cardiovascular Vascular: Present: pedal edema - Genitourinary Genitourinary: Absent: dysuria Mental Status Exam Vitals: Last Vital Signs Temp 97.6 F 05/25/17 08:00 Pulse 72 05/25/17 08:00 Resp 16 05/25/17 08:00 BP 130/78 05/25/17 08:00 Pulse Ox 95 05/25/17 08:00 Height: 1.78 m Weight: 102.3 kg - Mental Status Exam Muscle Strength/Tone: Normal Dressing: Casual Grooming: Poor Attitude: Tense Motor Activity: Restless (at times), Other (bizarre gesturing at times during interview) Eye Contact: Poor (even when requested) Speech: Slowed Volume: Soft Rhythm: Mumbled Sensory: Alert Orientation: Disoriented to time, Disoriented to situation, Oriented to person, Oriented to place Mood: Other ("I don't know", affect blunted but tense, inappropriate for setting ) Rate of Thoughts: Delayed Thought Organization: Disorganized, Confused Associations: Illogical Abstract Reasoning: Impaired, concrete Computation: Poor Computation Thought Content: Other (Out of context to situation) Perception/Psychotic: Psychotic (suspected to be responding to internal stimuli though denies) Language: Naming Impaired Fund of Knowledge: Poor fund of knowledge Memory: Poor-immediate, Poor-recent, Poor-remote Suicidal Ideation: Denies Homicidal Ideation: Denies Insight: Impaired Judgement: Impaired Impulse Control: Poor - Laboratory Result Diagrams: 05/24/17 17:05 05/24/17 17:05 Assessment and Plan (1) Unspecified psychosis Qualifiers: Psychosis type: unspecified psychosis type Qualified Code(s): F29 - Unspecified psychosis not due to a substance or known physiological condition Current visit: Yes Status: Acute (2) Neurocognitive disorder Current visit: Yes Status: Acute Unspecified at this point Other medical conditions: Normocytic anemia Facial abrasions, POA Hypercholesterolemia Obesity, BMI 32.4 Agree with psychiatric evaluation and stabilization. Maintain safety and elopement precautions. Standard labs: CBC, CMP, TSH, UA, Vitamin B12 and folate. CT completed. SLUMS to assess cognitive deficits if patient is able to cooperate. Obtain additional collateral from family/facility. Start Risperdal 0.5mg PO BID to target psychosis, patient is cooperative but tense - monitor mood, behavior and response to treatment.
[2017-05-26] MEDS: MEMANTINE 10 MG TABLET PO SCH (08:31)
[2017-05-26] MEDS: RisperiDONE ODT 0.5 MG TABLET PO SCH ×2 (08:31→19:34)
[2017-05-26] MEDS: MULTI-VIT + MINERAL (Opti-gen) TABLET PO SCH (08:31)
[2017-05-26] MEDS: SERTRALINE 50 MG TABLET PO SCH (08:31)
--- NOTE | 2017-05-26 13:20 | Progress Note ---
- Date 05/26/17 Subjective: Daniel is seen while resting in his room with nursing present. Nursing reports that he complained briefly of chest pain while in the day room this morning so they were getting vital signs. He reports brief left sided chest pain but when asked to point to where the pain was, he pointed to his epigastric region. He denies any radiation of the pain. No shortness of breath, nausea, vomiting, diaphoresis, dizziness or lightheadedness. He denies any pain currently. vital signs on exam were stable and bilateral blood pressures were stable. He is very soft spoken on exam and is not a great historian. He does admit to anxiety and repeats that he was only suppose to be here for a few days, indicating that pain may be related to anxiety. He is resting comfortably on exam and in no apparent distress. History of GERD. Review of labs from admission was completed. Objective Vital signs: Temperature 97.8 F 05/26/17 08:00 Pulse Rate 105 H 05/26/17 08:00 Respiratory Rate 18 05/26/17 08:00 Blood Pressure 115/82 05/26/17 08:00 Pulse Oximetry 96 05/26/17 08:00 Height/Weight/BMI: Height 5 ft 10 in Weight 225 lb 8.526 oz Body Mass Index 32.3 Comments: resting in bed with nursing at the bedside. Denies chest pain or other complaints on exam. - Constitutional Present: no acute distress, well nourished, well developed, cooperative Comments: soft spoken; poor historian. - Routine HEENT Exam Head: Present: normocephalic Eye: Present: PERRL. Absent: conjunctival icterus ENT: Present: mucous membranes moist Comments: multiple scabs noted to face - all healing without signs of infection. - Routine Respiratory Exam Present: CTA bilaterally. Absent: rales, respiratory distress, rhonchi, stridor , wheezes, crackles - Routine Cardiovascular Exam Present: RRR, S1, S2, no murmur - Routine Abdominal Exam Present: soft, normoactive bowel sounds, tenderness (mild epigastric), non distended. Absent: rebound, guarding, firm - Routine Extremities Exam Present: no edema, non tender, full ROM, pulses intact - Routine Back/Spine/Pelvis Exam Back/Spine: Present: full ROM. Absent: vertebral tenderness - Routine Musculoskeletal Exam Musculoskeletal: Present: moving extremities well - Routine Skin Exam Present: dry, warm. Absent: jaundice Comments: healing shingles rash noted to right chest wrapping along axillary region to right back. - Routine Neurological Exam Present: alert, moving all extremities, hearing grossly intact soft spoken - Routine Lymphatic Exam Lymphatic: Absent: lymphedema - Routine Psychiatric Exam Present: cooperative Comments: flat affect. Results - Labs CBC & Chem 7: 05/27/17 07:18 05/27/17 07:18 Assessment and Plan (1) Aggressive behavior Current visit: Yes Status: Acute Assessment and Plan: IMPRESSION Normocytic anemia Facial abrasions, POA Hypercholesterolemia Depression Dementia Anxiety Obesity, BMI 32.4 PLAN - 05/26/17 Complain of brief chest pain which has resolved without treatment. Points to location of pain in epigastric region and has mild discomfort to epigastric region with palpation. History of GERD. Will initiate Protonix 20mg daily for GERD and GI protection. Continue TUMS and Maalox as needed. As patient is currently chest pain free, will hold off on EKG, ASA, and further evaluation as clinical exam more likely GI related. Obtain EKG if pain returns. B12 on admission 460. Will initiate B12 500mg daily for additional supplementation and recommend follow up in 2-4 weeks. Continue psychiatric cares and providing safe environment. Given anemia on admission - will monitor labs periodically. If Hgb trends down , consider hemoocult test. GI Prophylaxis: Protonix Resuscitation Status: Full Code - Time spent with patient Time with patient PN: 30 minutes - Physician Narrative Physician: other (Dr. Olvera) Narrative: Date: 05/26/17 Time: 1316 Hospital Course Summary Disclaimer: The visit summary below is not to be considered part of the above Progress Note. Hospital Course: PLAN - 05/26/17 Complain of brief chest pain which has resolved without treatment. Points to location of pain in epigastric region and has mild discomfort to epigastric region with palpation. History of GERD. Will initiate Protonix 20mg daily for GERD and GI protection. Continue TUMS and Maalox as needed. As patient is currently chest pain free, will hold off on EKG, ASA, and further evaluation as clinical exam more likely GI related. Obtain EKG if pain returns. B12 on admission 460. Will initiate B12 500mg daily for additional supplementation and recommend follow up in 2-4 weeks. Continue psychiatric cares and providing safe environment. Given anemia on admission - will monitor labs periodically. If Hgb trends down , consider hemoocult test.
[2017-05-26] MEDS ORDERED: MAG-AL + SIM ORAL LIQUID 30ml PO PRN (13:25)
--- NOTE | 2017-05-26 14:51 | Neuropsych Progress Note ---
[place] Subjective Date: 05/26/17 - Sujective/Severity of Illness Medications: Acetaminophen (Tylenol) 650 mg PO Q4H PRN PRN Reason: Pain Al Hydroxide/Mg Hydroxide (Maalox Plus) 30 ml PO Q4H PRN PRN Reason: Indigestion Alprazolam (Xanax) 0.5 mg PO BID PRN PRN Reason: Anxiety Calcium Carbonate (Tums) 1,000 mg PO TID PRN Cyanocobalamin (Vit. B-12) 500 mcg PO DAILY COUNT INCLUDES [facility] Haloperidol (Haldol) 0.5 mg PO Q6H PRN PRN Reason: Extreme agitation Haloperidol Lactate (Haldol) 0.5 mg IM Q6H PRN PRN Reason: Extreme agitation Lorazepam (Ativan) 0.5 mg PO Q6H PRN PRN Reason: Extreme agitation Last Admin: 05/24/17 20:02 Dose: 0.5 mg Lorazepam (Ativan Inj) 0.5 mg IM Q6H PRN PRN Reason: Extreme agitation Magnesium Hydroxide (Mom) 45 ml PO DAILY PRN PRN Reason: Constipation Memantine (Namenda) 10 mg PO DAILY COUNT INCLUDES [facility] Last Admin: 05/26/17 08:31 Dose: 10 mg Multivitamins/Minerals (Vision) 1 tab PO DAILY COUNT INCLUDES [facility] Last Admin: 05/26/17 08:31 Dose: 1 tab Pantoprazole Sodium (Protonix) 20 mg PO ACB COUNT INCLUDES THE [facility] Risperidone (Risperdal M) 0.5 mg PO BID COUNT INCLUDES THE [facility] Last Admin: 05/26/17 08:31 Dose: 0.5 mg Sertraline HCl (Zoloft) 50 mg PO DAILY COUNT INCLUDES [facility] Last Admin: 05/26/17 08:31 Dose: 50 mg Subjective: Patient seen and chart reviewed. Case discussed with treatment team. On interview, patient is confused but much more organized than yesterday. He says his mood is "lousy" because he shouldn't be here -- He asks several questions about where he lives, his sister, his address. He says, "I'm not supposed to be here but I'm not supposed to be at [employer] either." Patient had his cereal and milk sitting in front of him and was either too disorganized to know how to prepare it (open cereal, open milk, pour into bowl) or perhaps worried about the cost because he doesn't have any money. When asked about AH, he says "not really" but then says he hears music in his head at times. He denies any SI, HI. He is able to follow directions for FNF today. Patient denies any adverse side effects related to psychotropic medications. Nursing staff report patient continues to have bizarre/disorganized behavior but he has not had any significant behavioral difficulties or aggression. Patient has been adherent with medications. Patient slept 5+ hours overnight. VSS. Patient is eating well. Psychotropic PRNs required in the past 24 hours: none. 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 Patient himself says they said his behavior was bizarre and he was repeating himself a lot. Start Time: 09:00 Stop Time: 09:20 Mental Status Exam Vitals: Last Vital Signs Temp 97.8 F 05/26/17 08:00 Pulse 83 05/26/17 13:25 Resp 18 05/26/17 08:00 BP 120/79 05/26/17 13:25 Pulse Ox 96 05/26/17 13:20 Height: 1.78 m Weight: 102.3 kg - Mental Status Exam Muscle Strength/Tone: Normal Dressing: Casual Grooming: Poor Attitude: Tense Motor Activity: Retardation Eye Contact: Poor (even when requested) Speech: Slowed Volume: Soft Rhythm: Mumbled Orientation: Disoriented to time, Disoriented to situation, Oriented to person, Oriented to place Mood: Other (says his mood is "lousy") Affect: Blunted Rate of Thoughts: Delayed Thought Organization: Disorganized (though improved from yesterday), Confused Associations: Illogical Abstract Reasoning: Impaired, concrete Computation: Poor Computation Thought Content: Other (has anxiety about being in hospital, where he lives) Perception/Psychotic: Psychotic (suspected to be responding to internal stimuli) Current Hallucinations: Auditory (reports he hears music in his head) Language: Naming Impaired Fund of Knowledge: Poor fund of knowledge Memory: Poor-immediate, Poor-recent, Poor-remote Suicidal Ideation: Denies Homicidal Ideation: Denies Insight: Impaired Judgement: Impaired Impulse Control: Poor - Laboratory Result Diagrams: 05/24/17 17:05 03/05/18 17:05 Assessment and Plan (1) Unspecified psychosis Qualifiers: Psychosis type: unspecified psychosis type Qualified Code(s): F29 - Unspecified psychosis not due to a substance or known physiological condition Current visit: Yes Status: Acute (2) Neurocognitive disorder Current visit: Yes Status: Acute Continue current care; patient has responded well to low-dose Risperdal. Will request records from at [facility]. It is unclear what patient's baseline may be - will continue to monitor, consider additional increase in Risperdal tomorrow. Hospital Course Summary Disclaimer: The visit summary below is not to be considered part of the above Progress Note. Hospital Course: PLAN - 05/26/17 Complain of brief chest pain which has resolved without treatment. Points to location of pain in epigastric region and has mild discomfort to epigastric region with palpation. History of GERD. Will initiate Protonix 20mg daily for GERD and GI protection. Continue TUMS and Maalox as needed. As patient is currently chest pain free, will hold off on EKG, ASA, and further evaluation as clinical exam more likely GI related. Obtain EKG if pain returns. B12 on admission 460. Will initiate B12 500mg daily for additional supplementation and recommend follow up in 2-4 weeks. Continue psychiatric cares and providing safe environment. Given anemia on admission - will monitor labs periodically. If Hgb trends down , consider hemoocult test. 05/25/17 Psych: Discontinue PRN Xanax. Start Risperdal 0.5mg PO BID due to psychosis, disorganized behavior. 05/26/17 Psych: Continue current care; patient has responded well to low-dose Risperdal. Will request records from at [facility]. It is unclear what patient' s baseline may be - will continue to monitor, consider additional increase in Risperdal tomorrow.
[2017-05-27] MEDS: RisperiDONE ODT 0.5 MG TABLET PO SCH ×3 (04:08→20:12)
[2017-05-27] MEDS: PANTOPRAZOLE 20 MG TABLET PO SCH (08:32)
[2017-05-27] MEDS: SERTRALINE 50 MG TABLET PO SCH (08:51)
[2017-05-27] MEDS: CYANOCOBALAMIN (B-12) 500mcg TABLET PO SCH (08:51)
[2017-05-27] MEDS: MEMANTINE 10 MG TABLET PO SCH (08:51)
[2017-05-27] MEDS: MULTI-VIT + MINERAL (Opti-gen) TABLET PO SCH (08:52)
--- NOTE | 2017-05-27 16:44 | Neuropsych Progress Note ---
[facility] Subjective Date: 05/28/17 - Sujective/Severity of Illness Medications: Acetaminophen (Tylenol) 650 mg PO Q4H PRN PRN Reason: Pain Al Hydroxide/Mg Hydroxide (Maalox Plus) 30 ml PO Q4H PRN PRN Reason: Indigestion Alprazolam (Xanax) 0.5 mg PO BID PRN PRN Reason: Anxiety Calcium Carbonate (Tums) 1,000 mg PO TID PRN Cyanocobalamin (Vit. B-12) 500 mcg PO DAILY [facility] Last Admin: 05/27/17 08:51 Dose: 500 mcg Haloperidol (Haldol) 0.5 mg PO Q6H PRN PRN Reason: Extreme agitation Haloperidol Lactate (Haldol) 0.5 mg IM Q6H PRN PRN Reason: Extreme agitation Lorazepam (Ativan) 0.5 mg PO Q6H PRN PRN Reason: Extreme agitation Last Admin: 05/24/17 20:02 Dose: 0.5 mg Lorazepam (Ativan Inj) 0.5 mg IM Q6H PRN PRN Reason: Extreme agitation Magnesium Hydroxide (Mom) 45 ml PO DAILY PRN PRN Reason: Constipation Memantine (Namenda) 10 mg PO DAILY [facility] Last Admin: 05/27/17 08:51 Dose: 10 mg Multivitamins/Minerals (Vision) 1 tab PO DAILY [facility] Last Admin: 05/27/17 08:52 Dose: 1 tab Pantoprazole Sodium (Protonix) 20 mg PO ACB [facility] Last Admin: 05/27/17 08:32 Dose: 20 mg Risperidone (Risperdal M) 0.5 mg PO BID [facility] Last Admin: 05/27/17 08:51 Dose: 0.5 mg Sertraline HCl (Zoloft) 50 mg PO DAILY [facility] Last Admin: 05/27/17 08:51 Dose: 50 mg Subjective: Patient seen and chart reviewed. Case discussed with treatment team. On interview, patient is confused but associations are more intact than on admission. He shrugs when asked about his mood but appears dysphoric and a bit anxious. He denies any SI, HI. Patient denies any adverse side effects related to psychotropic medications. He denies AVH today. Nursing staff report patient has not had any significant behavioral difficulties or aggression though he is often confused and talks to himself at times. Patient has been adherent with medications. Patient slept well overnight. VSS. Patient is eating well. Psychotropic PRNs required in the past 24 hours: none. Start Time: 10:40 Stop Time: 11:00 Mental Status Exam Vitals: Last Vital Signs Temp 97.5 F 05/27/17 16:00 Pulse 91 05/27/17 16:00 Resp 16 05/27/17 16:00 BP 106/69 05/27/17 16:00 Pulse Ox 92 05/27/17 15:49 Height: 1.78 m Weight: 102.3 kg - Mental Status Exam Muscle Strength/Tone: Normal Dressing: Casual Grooming: Disheveled Attitude: Cooperative Motor Activity: Retardation Eye Contact: Poor (even when requested) Speech: Slowed Volume: Soft Rhythm: Mumbled Orientation: Disoriented to time, Disoriented to situation, Oriented to person, Oriented to place Mood: Other ("I don't know") Affect: Sad, Blunted Rate of Thoughts: Delayed Thought Organization: Disorganized (though improved from admission), Confused Associations: Illogical Abstract Reasoning: Impaired, concrete Computation: Poor Computation Thought Content: Other (has anxiety about being in hospital, where he lives) Perception/Psychotic: Psychotic (suspected to be responding to internal stimuli at admission - believed to be improving) Current Hallucinations: Auditory (has reported he hears music in his head) Language: Naming Impaired Fund of Knowledge: Poor fund of knowledge Memory: Poor-immediate, Poor-recent, Poor-remote Suicidal Ideation: Denies Homicidal Ideation: Denies Insight: Impaired Judgement: Impaired Impulse Control: Fair - Laboratory Result Diagrams: 05/27/17 07:18 05/27/17 07:18 Laboratory Results - last 24 hr 05/27/17 05/27/17 07:18 07:18 WBC 6.2 RBC 4.46 L Hgb 13.8 Hct 40.8 L MCV 91.5 MCH 30.9 MCHC 33.8 RDW Std Deviation 45.5 Plt Count 178 MPV 8.5 L Immature Gran % (Auto) 0.3 Neut % (Auto) 62.2 Lymph % (Auto) 28.1 [place] % (Auto) 7.3 Eos % (Auto) 1.8 Baso % (Auto) 0.3 Neut # (Auto) 3.9 Lymph # (Auto) 1.7 [place] # (Auto) 0.5 Eos # (Auto) 0.1 Baso # (Auto) 0.0 Abs Immat Gran (auto) 0.02 Turbidity < 20 Sodium 145 H Potassium 4.3 Chloride 106 Carbon Dioxide 31 H Anion Gap 8 BUN 18.0 Creatinine 1.0 GFR Calculation 76 BUN/Creatinine Ratio 18 Glucose 97 Calculated Osmolality 281 H Calcium 9.3 Icterus Index < 2 Specimen Hemolysis < 15 Assessment and Plan (1) Unspecified psychosis Qualifiers: Psychosis type: unspecified psychosis type Qualified Code(s): F29 - Unspecified psychosis not due to a substance or known physiological condition Current visit: Yes Status: Acute (2) Neurocognitive disorder Current visit: Yes Status: Acute Patient is not able to provide reliable report of mood but appears sad; will increase Zoloft to 100mg PO daily. Plan to d/c PRN Xanax. Hospital Course Summary Disclaimer: The visit summary below is not to be considered part of the above Progress Note. Hospital Course: 05/25 Agree with admission to [facility]. Folate & Vit B12 pending. VSS, medically cleared. CT head reviewed - no acute findings. Provide safe & supportive environment. Psych: Started Risperdal 0.5mg PO BID shortly after admission. Psych 05/27/17: Increase Zoloft to 100mg PO daily; discontinue PRN Xanax.
[2017-05-28] MEDS: PANTOPRAZOLE 20 MG TABLET PO SCH (08:58)
[2017-05-28] MEDS: CYANOCOBALAMIN (B-12) 500mcg TABLET PO SCH (08:58)
[2017-05-28] MEDS: MEMANTINE 10 MG TABLET PO SCH (08:58)
[2017-05-28] MEDS: MULTI-VIT + MINERAL (Opti-gen) TABLET PO SCH (08:58)
[2017-05-28] MEDS: RisperiDONE ODT 0.5 MG TABLET PO SCH ×2 (09:14→20:42)
[2017-05-28] MEDS: SERTRALINE 100 MG TABLET PO SCH (09:14)
--- NOTE | 2017-05-28 13:45 | Neuropsych Progress Note ---
[facility] Subjective Date: 05/28/17 - Sujective/Severity of Illness Medications: Acetaminophen (Tylenol) 650 mg PO Q4H PRN PRN Reason: Pain Al Hydroxide/Mg Hydroxide (Maalox Plus) 30 ml PO Q4H PRN PRN Reason: Indigestion Calcium Carbonate (Tums) 1,000 mg PO TID PRN Cyanocobalamin (Vit. B-12) 500 mcg PO DAILY [facility] Last Admin: 05/28/17 08:58 Dose: 500 mcg Haloperidol (Haldol) 0.5 mg PO Q6H PRN PRN Reason: Extreme agitation Haloperidol Lactate (Haldol) 0.5 mg IM Q6H PRN PRN Reason: Extreme agitation Lorazepam (Ativan) 0.5 mg PO Q6H PRN PRN Reason: Extreme agitation Last Admin: 05/24/17 20:02 Dose: 0.5 mg Lorazepam (Ativan Inj) 0.5 mg IM Q6H PRN PRN Reason: Extreme agitation Magnesium Hydroxide (Mom) 45 ml PO DAILY PRN PRN Reason: Constipation Memantine (Namenda) 10 mg PO DAILY [facility] Last Admin: 05/28/17 08:58 Dose: 10 mg Multivitamins/Minerals (Vision) 1 tab PO DAILY [facility] Last Admin: 05/28/17 08:58 Dose: 1 tab Pantoprazole Sodium (Protonix) 20 mg PO ACB [facility] Last Admin: 05/28/17 08:58 Dose: 20 mg Risperidone (Risperdal M) 0.5 mg PO BID [facility] Last Admin: 05/28/17 09:14 Dose: 0.5 mg Sertraline HCl (Zoloft) 100 mg PO DAILY [facility] Last Admin: 05/28/17 09:14 Dose: 100 mg Subjective: Patient seen and chart reviewed. Case discussed with treatment team. On interview, patient is confused but associations are more intact than on admission. He shrugs when asked about his mood. This morning, he made a comment to nursing staff about killing himself because he doesn't understand why he is here. When asked about it, he says he has thought of that but would never do it. He denies AVH today. Nursing staff report patient has not had any significant behavioral difficulties or aggression. He has not been observed talking to himself today though he continues to appear sad/dysphoric. Patient has been adherent with medications. Patient slept 9 hours overnight. VSS. Patient is eating well. Psychotropic PRNs required in the past 24 hours: none. Start Time: 12:40 Stop Time: 13:00 Mental Status Exam Vitals: Last Vital Signs Temp 98.0 F 05/28/17 08:00 Pulse 105 H 05/28/17 08:00 Resp 18 05/28/17 08:00 BP 112/75 05/28/17 08:00 Pulse Ox 94 05/28/17 08:00 Height: 1.78 m Weight: 102.3 kg - Mental Status Exam Muscle Strength/Tone: Normal Dressing: Casual Grooming: Disheveled Attitude: Cooperative Motor Activity: Retardation Eye Contact: Poor (even when requested) Speech: Slowed Volume: Soft Rhythm: Mumbled Orientation: Disoriented to time, Disoriented to situation, Oriented to person, Oriented to place Mood: Other (shrugs when asked about mood) Affect: Sad, Blunted Rate of Thoughts: Delayed Thought Organization: Disorganized (though improved from admission), Confused Associations: Illogical Abstract Reasoning: Impaired, concrete Computation: Poor Computation Thought Content: Other (cannot understand why he is here, what he is supposed to do, etc.) Perception/Psychotic: Hx psychosis, not current Current Hallucinations: Auditory Language: Naming Impaired Fund of Knowledge: Poor fund of knowledge Memory: Poor-immediate, Poor-recent, Poor-remote Suicidal Ideation: Intermittent Homicidal Ideation: Denies Insight: Impaired Judgement: Impaired Impulse Control: Fair - Laboratory Result Diagrams: 05/27/17 07:18 05/27/17 07:18 Laboratory Results - last 24 hr 05/28/17 07:14 Triglycerides 155 Cholesterol 173 LDL Cholesterol, Calc 122.0 VLDL Cholesterol 31.0 H HDL Cholesterol 20 L Cholesterol/HDL Ratio 8.7 H Assessment and Plan (1) Unspecified psychosis Qualifiers: Psychosis type: unspecified psychosis type Qualified Code(s): F29 - Unspecified psychosis not due to a substance or known physiological condition Current visit: Yes Status: Acute (2) Neurocognitive disorder Current visit: Yes Status: Acute Admission paperwork reviewed and noted that patient was supposed to be taking Zoloft 75mg PO daily, which was entered into the computer as 50mg upon admission. Increased to 100mg PO this morning. Monitor mood, behavior and response to treatment including any further morbid ideation or suicidal thoughts. Hospital Course Summary Disclaimer: The visit summary below is not to be considered part of the above Progress Note. Hospital Course: 05/25 Agree with admission to [facility]. Folate & Vit B12 pending. VSS, medically cleared. CT head reviewed - no acute findings. Provide safe & supportive environment. Psych: Started Risperdal 0.5mg PO BID shortly after admission. Psych 05/27/17: Increase Zoloft to 100mg PO daily; discontinue PRN Xanax. Psych 05/28/17: Admission paperwork reviewed and noted that patient was supposed to be taking Zoloft 75mg PO daily, which was entered into the computer as 50mg upon admission. Increased to 100mg PO this morning. Monitor mood, behavior and response to treatment including any further morbid ideation or suicidal thoughts.
[2017-05-29] MEDS: PANTOPRAZOLE 20 MG TABLET PO SCH (07:22)
[2017-05-29] MEDS: SERTRALINE 100 MG TABLET PO SCH (10:04)
[2017-05-29] MEDS: CYANOCOBALAMIN (B-12) 500mcg TABLET PO SCH (10:04)
[2017-05-29] MEDS: MULTI-VIT + MINERAL (Opti-gen) TABLET PO SCH (10:04)
[2017-05-29] MEDS: RisperiDONE ODT 0.5 MG TABLET PO SCH ×2 (10:05→20:47)
[2017-05-29] MEDS: MEMANTINE 10 MG TABLET PO SCH (10:05)
--- NOTE | 2017-05-29 10:36 | Neuropsych Progress Note ---
Generations Subjective Date: 05/29/17 - Sujective/Severity of Illness Medications: Acetaminophen (Tylenol) 650 mg PO Q4H PRN PRN Reason: Pain Al Hydroxide/Mg Hydroxide (Maalox Plus) 30 ml PO Q4H PRN PRN Reason: Indigestion Calcium Carbonate (Tums) 1,000 mg PO TID PRN Cyanocobalamin (Vit. B-12) 500 mcg PO DAILY [facility] Last Admin: 05/29/17 10:04 Dose: 500 mcg Haloperidol (Haldol) 0.5 mg PO Q6H PRN PRN Reason: Extreme agitation Haloperidol Lactate (Haldol) 0.5 mg IM Q6H PRN PRN Reason: Extreme agitation Lorazepam (Ativan) 0.5 mg PO Q6H PRN PRN Reason: Extreme agitation Last Admin: 05/24/17 20:02 Dose: 0.5 mg Lorazepam (Ativan Inj) 0.5 mg IM Q6H PRN PRN Reason: Extreme agitation Magnesium Hydroxide (Mom) 45 ml PO DAILY PRN PRN Reason: Constipation Memantine (Namenda) 10 mg PO DAILY [facility] Last Admin: 05/29/17 10:05 Dose: 10 mg Multivitamins/Minerals (Vision) 1 tab PO DAILY [facility] Last Admin: 05/29/17 10:04 Dose: 1 tab Pantoprazole Sodium (Protonix) 20 mg PO ACB [facility] Last Admin: 05/29/17 07:22 Dose: 20 mg Risperidone (Risperdal M) 0.5 mg PO BID [facility] Last Admin: 05/29/17 10:05 Dose: 0.5 mg Sertraline HCl (Zoloft) 100 mg PO DAILY [facility] Last Admin: 05/29/17 10:04 Dose: 100 mg Subjective: Patient seen and chart reviewed. Nursing reports pt is doing well. Sleeping well and has a good appetite. On face to face the pt is slightly irritable. He is only oriented to self. He states he is doing well and voices no concerns. Denies pain. Tolerating meds. Start Time: 09:45 Stop Time: 10:00 Mental Status Exam Vitals: Last Vital Signs Temp 98.0 F 05/29/17 07:51 Pulse 80 05/29/17 07:51 Resp 18 05/29/17 07:51 BP 107/74 05/29/17 07:51 Pulse Ox 98 03/10/18 07:51 Height: 1.78 m Weight: 102.3 kg - Mental Status Exam Muscle Strength/Tone: Normal Dressing: Casual Grooming: Disheveled Attitude: Cooperative Motor Activity: Retardation Eye Contact: Poor (even when requested) Speech: Slowed Volume: Soft Rhythm: Mumbled Orientation: Disoriented to time, Disoriented to situation, Oriented to person, Oriented to place Mood: Other (shrugs when asked about mood) Rate of Thoughts: Delayed Thought Organization: Disorganized (though improved from admission), Confused Associations: Illogical Abstract Reasoning: Impaired, concrete Computation: Poor Computation Thought Content: Other (cannot understand why he is here, what he is supposed to do, etc.) Perception/Psychotic: Hx psychosis, not current Current Hallucinations: Auditory Language: Naming Impaired Fund of Knowledge: Poor fund of knowledge Memory: Poor-immediate, Poor-recent, Poor-remote Suicidal Ideation: Intermittent Homicidal Ideation: Denies Insight: Impaired Judgement: Impaired Impulse Control: Fair - Laboratory Result Diagrams: 05/27/17 07:18 05/27/17 07:18 Assessment and Plan (1) Unspecified psychosis Qualifiers: Psychosis type: unspecified psychosis type Qualified Code(s): F29 - Unspecified psychosis not due to a substance or known physiological condition Current visit: Yes Status: Acute (2) Neurocognitive disorder Current visit: Yes Status: Acute Hospital Course Summary Disclaimer: The visit summary below is not to be considered part of the above Progress Note. Hospital Course: 05/25 Agree with admission to [facility]. Folate & Vit B12 pending. VSS, medically cleared. CT head reviewed - no acute findings. Provide safe & supportive environment. 05/29/17 Psych- Pt doing well today. Continue current care
[2017-05-30] MEDS: PANTOPRAZOLE 20 MG TABLET PO SCH (06:29)
[2017-05-30] MEDS: MULTI-VIT + MINERAL (Opti-gen) TABLET PO SCH (08:17)
[2017-05-30] MEDS: MEMANTINE 10 MG TABLET PO SCH (08:17)
[2017-05-30] MEDS: RisperiDONE ODT 0.5 MG TABLET PO SCH ×3 (08:17→23:03)
[2017-05-30] MEDS: CYANOCOBALAMIN (B-12) 500mcg TABLET PO SCH (08:17)
[2017-05-30] MEDS: SERTRALINE 100 MG TABLET PO SCH (08:17)
--- NOTE | 2017-05-30 12:26 | Neuropsych Progress Note ---
Generations Subjective Date: 05/30/17 - Sujective/Severity of Illness Medications: Acetaminophen (Tylenol) 650 mg PO Q4H PRN PRN Reason: Pain Last Admin: 05/30/17 10:07 Dose: 650 mg Al Hydroxide/Mg Hydroxide (Maalox Plus) 30 ml PO Q4H PRN PRN Reason: Indigestion Calcium Carbonate (Tums) 1,000 mg PO TID PRN Cyanocobalamin (Vit. B-12) 500 mcg PO DAILY [facility] Last Admin: 05/30/17 08:17 Dose: 500 mcg Haloperidol (Haldol) 0.5 mg PO Q6H PRN PRN Reason: Extreme agitation Haloperidol Lactate (Haldol) 0.5 mg IM Q6H PRN PRN Reason: Extreme agitation Lorazepam (Ativan) 0.5 mg PO Q6H PRN PRN Reason: Extreme agitation Last Admin: 05/24/17 20:02 Dose: 0.5 mg Lorazepam (Ativan Inj) 0.5 mg IM Q6H PRN PRN Reason: Extreme agitation Magnesium Hydroxide (Mom) 45 ml PO DAILY PRN PRN Reason: Constipation Memantine (Namenda) 10 mg PO DAILY [facility] Last Admin: 05/30/17 08:17 Dose: 10 mg Multivitamins/Minerals (Vision) 1 tab PO DAILY [facility] Last Admin: 05/30/17 08:17 Dose: 1 tab Pantoprazole Sodium (Protonix) 20 mg PO ACB [facility] Last Admin: 05/30/17 06:29 Dose: 20 mg Risperidone (Risperdal M) 0.5 mg PO BID [facility] Last Admin: 05/30/17 08:17 Dose: 0.5 mg Sertraline HCl (Zoloft) 100 mg PO DAILY [facility] Last Admin: 05/30/17 08:17 Dose: 100 mg Subjective: Patient seen and chart reviewed. Nursing reports pt is doing well. Sleeping well and has a good appetite. No behaviors noted. On face to face the pt is pleasant but confused. He is only oriented to self. He denies any pain. Tolerating meds. Start Time: 11:45 Stop Time: 12:00 Mental Status Exam Vitals: Last Vital Signs Temp 98.4 F 05/30/17 08:00 Pulse 88 05/30/17 08:00 Resp 18 05/30/17 08:00 BP 126/74 05/30/17 08:00 Pulse Ox 93 05/30/17 08:00 Height: 1.78 m Weight: 102.3 kg - Mental Status Exam Muscle Strength/Tone: Normal Dressing: Casual Grooming: Disheveled Attitude: Cooperative Motor Activity: Retardation Eye Contact: Poor (even when requested) Speech: Slowed Volume: Soft Rhythm: Mumbled Orientation: Disoriented to time, Disoriented to situation, Oriented to person, Oriented to place Mood: Other (shrugs when asked about mood) Rate of Thoughts: Delayed Thought Organization: Disorganized (though improved from admission), Confused Associations: Illogical Abstract Reasoning: Impaired, concrete Computation: Poor Computation Thought Content: Other (cannot understand why he is here, what he is supposed to do, etc.) Perception/Psychotic: Hx psychosis, not current Current Hallucinations: Auditory Language: Naming Impaired Fund of Knowledge: Poor fund of knowledge Memory: Poor-immediate, Poor-recent, Poor-remote Suicidal Ideation: Intermittent Homicidal Ideation: Denies Insight: Impaired Judgement: Impaired Impulse Control: Fair - Laboratory Result Diagrams: 05/27/17 07:18 05/27/17 07:18 Assessment and Plan (1) Unspecified psychosis Qualifiers: Psychosis type: unspecified psychosis type Qualified Code(s): F29 - Unspecified psychosis not due to a substance or known physiological condition Current visit: Yes Status: Acute (2) Neurocognitive disorder Current visit: Yes Status: Acute Hospital Course Summary Disclaimer: The visit summary below is not to be considered part of the above Progress Note. Hospital Course: 05/25 Agree with admission to [facility]. Folate & Vit B12 pending. VSS, medically cleared. CT head reviewed - no acute findings. Provide safe & supportive environment. 05/29/17 Psych- Pt doing well today. Continue current care 05/30/17 Psych- Pt doing well. Continue current care
[2017-05-31] MEDS: PANTOPRAZOLE 20 MG TABLET PO SCH (08:00)
[2017-05-31] MEDS: MEMANTINE 10 MG TABLET PO SCH (08:01)
[2017-05-31] MEDS: MULTI-VIT + MINERAL (Opti-gen) TABLET PO SCH (08:01)
[2017-05-31] MEDS: CYANOCOBALAMIN (B-12) 500mcg TABLET PO SCH (08:01)
[2017-05-31] MEDS: RisperiDONE ODT 0.5 MG TABLET PO SCH ×2 (08:01→20:51)
[2017-05-31] MEDS: SERTRALINE 100 MG TABLET PO SCH (08:01)
--- NOTE | 2017-05-31 14:27 | Progress Note ---
- Date 05/31/17 Subjective: Daniel is seen today in follow up. He is watching TV in the day room and does not appear to be in any distress. He denies having any pain or feeling short of breath. Abdomen is soft and non tender. Chart reviewed. BP stable. Objective Vital signs: Temperature 97.7 F 05/31/17 08:00 Pulse Rate 102 H 05/31/17 08:00 Respiratory Rate 16 05/31/17 08:00 Blood Pressure 115/78 05/31/17 08:00 Pulse Oximetry 93 05/31/17 08:00 Height/Weight/BMI: Height 1.78 m Weight 102.3 kg Body Mass Index 32.3 - Constitutional Present: no acute distress, well nourished, well developed - Routine HEENT Exam Eye: Present: EOMI ENT: Present: mucous membranes moist, dentition normal - Routine Respiratory Exam Present: CTA bilaterally. Absent: wheezes - Routine Cardiovascular Exam Present: RRR, S1, S2. Absent: murmur - Routine Abdominal Exam Present: soft, normoactive bowel sounds, non distended. Absent: tenderness - Routine Extremities Exam Present: normal capillary refill - Routine Back/Spine/Pelvis Exam Back/Spine: Present: full ROM - Routine Skin Exam Present: intact, dry, warm - Routine Neurological Exam Present: alert, CN II-XII intact, moving all extremities - Routine Lymphatic Exam Lymphatic: Absent: adenopathy - Routine Psychiatric Exam Present: normal affect, cooperative Results - Labs CBC & Chem 7: 05/27/17 07:18 05/27/17 07:18 Assessment and Plan (1) Aggressive behavior Current visit: Yes Status: Acute Assessment and Plan: IMPRESSION Normocytic anemia Facial abrasions, POA- Resolved Hypercholesterolemia Depression Dementia Anxiety Obesity, BMI 32.4 PLAN Overall medically stable Chart reviewed Continued psychiatric care as per Dr. Tamez. GERD patient to participate in unit activities and provide a safe environment - Physician Narrative Narrative: Date: 05/31/17 Time: 1423 Hospital Course Summary Disclaimer: The visit summary below is not to be considered part of the above Progress Note. Hospital Course: 05/25 Agree with admission to [facility]. Folate & Vit B12 pending. VSS, medically cleared. CT head reviewed - no acute findings. Provide safe & supportive environment. 05/29/17 Psych- Pt doing well today. Continue current care 05/30/17 Psych- Pt doing well. Continue current care
--- NOTE | 2017-05-31 17:11 | Neuropsych Progress Note ---
Generations Subjective Date: 05/31/17 - Sujective/Severity of Illness Medications: Acetaminophen (Tylenol) 650 mg PO Q4H PRN PRN Reason: Pain Last Admin: 05/30/17 10:07 Dose: 650 mg Al Hydroxide/Mg Hydroxide (Maalox Plus) 30 ml PO Q4H PRN PRN Reason: Indigestion Calcium Carbonate (Tums) 1,000 mg PO TID PRN Cyanocobalamin (Vit. B-12) 500 mcg PO DAILY [facility] Last Admin: 05/31/17 08:01 Dose: 500 mcg Haloperidol (Haldol) 0.5 mg PO Q6H PRN PRN Reason: Extreme agitation Haloperidol Lactate (Haldol) 0.5 mg IM Q6H PRN PRN Reason: Extreme agitation Lorazepam (Ativan) 0.5 mg PO Q6H PRN PRN Reason: Extreme agitation Last Admin: 05/24/17 20:02 Dose: 0.5 mg Lorazepam (Ativan Inj) 0.5 mg IM Q6H PRN PRN Reason: Extreme agitation Magnesium Hydroxide (Mom) 45 ml PO DAILY PRN PRN Reason: Constipation Memantine (Namenda) 10 mg PO DAILY [facility] Last Admin: 05/31/17 08:01 Dose: 10 mg Multivitamins/Minerals (Vision) 1 tab PO DAILY [facility] Last Admin: 05/31/17 08:01 Dose: 1 tab Pantoprazole Sodium (Protonix) 20 mg PO ACB [facility] Last Admin: 05/31/17 08:00 Dose: 20 mg Risperidone (Risperdal M) 0.5 mg PO BID [facility] Last Admin: 05/31/17 08:01 Dose: 0.5 mg Sertraline HCl (Zoloft) 100 mg PO DAILY [facility] Last Admin: 05/31/17 08:01 Dose: 100 mg Subjective: Patient seen and chart reviewed. Case discussed with treatment team. On interview, patient is pleasant though confused, and affect is significantly brighter than last week. He says his mood is "alright" but doesn't make much sense otherwise. Patient denies any SI, HI or AVH. Patient denies any adverse side effects related to psychotropic medications. Nursing staff report patient has not had any significant behavioral difficulties on the unit. Patient has been adherent with medications. Patient slept 7 hours overnight. VSS. Patient is eating well. Psychotropic PRNs required in the past 24 hours: none. Start Time: 11:40 Stop Time: 12:00 Mental Status Exam Vitals: Last Vital Signs Temp 97.3 F 05/31/17 15:54 Pulse 91 05/31/17 15:54 Resp 16 05/31/17 15:54 BP 124/73 05/31/17 15:54 Pulse Ox 93 05/31/17 15:54 Height: 1.78 m Weight: 102.3 kg - Mental Status Exam Muscle Strength/Tone: Normal Dressing: Casual Grooming: Disheveled Attitude: Cooperative Motor Activity: Retardation Eye Contact: Fair Speech: Slowed Volume: Soft Rhythm: Mumbled Orientation: Disoriented to time, Disoriented to situation, Oriented to person, Oriented to place Mood: Neutral Affect: Relaxed Rate of Thoughts: Delayed Thought Organization: Organized (much moreso than upon admission), Confused Associations: Illogical Abstract Reasoning: Impaired, concrete Computation: Poor Computation Thought Content: Normal (other than confusion) Perception/Psychotic: Hx psychosis, not current Current Hallucinations: Auditory Language: Naming Impaired Fund of Knowledge: Poor fund of knowledge Memory: Poor-immediate, Poor-recent, Poor-remote Suicidal Ideation: Denies Homicidal Ideation: Denies Insight: Impaired Judgement: Impaired Impulse Control: Fair - Laboratory Result Diagrams: 05/27/17 07:18 05/27/17 07:18 Assessment and Plan (1) Unspecified psychosis Qualifiers: Psychosis type: unspecified psychosis type Qualified Code(s): F29 - Unspecified psychosis not due to a substance or known physiological condition Current visit: Yes Status: Acute (2) Neurocognitive disorder Current visit: Yes Status: Acute Continue current care, SW/ to finalize discharge arrangements. Hospital Course Summary Disclaimer: The visit summary below is not to be considered part of the above Progress Note. Hospital Course: 05/25 Agree with admission to [facility]. Folate & Vit B12 pending. VSS, medically cleared. CT head reviewed - no acute findings. Provide safe & supportive environment. Psych: Started Risperdal 0.5mg PO BID to target disorganization, psychosis. Then increased Zoloft to 100mg PO daily. 05/29/17 Psych- Pt doing well today. Continue current care 05/30/17 Psych- Pt doing well. Continue current care 05/31/17 Psych: Continue current care, SW/CM to finalize discharge arrangements.
[2017-06-01] MEDS: SERTRALINE 100 MG TABLET PO SCH (08:24)
[2017-06-01] MEDS: MULTI-VIT + MINERAL (Opti-gen) TABLET PO SCH (08:24)
[2017-06-01] MEDS: RisperiDONE ODT 0.5 MG TABLET PO SCH (08:24)
[2017-06-01] MEDS: MEMANTINE 10 MG TABLET PO SCH (08:24)
[2017-06-01] MEDS: CYANOCOBALAMIN (B-12) 500mcg TABLET PO SCH (08:24)
[2017-06-01] MEDS: PANTOPRAZOLE 20 MG TABLET PO SCH (08:24)
[2017-06-01 08:29] VITALS: BP 103/72; PULSE 89; RESP 16; TEMP 98; O2SAT 92
--- NOTE | 2017-06-01 09:41 | Extended Care Facility Orders ---
Admission Orders Admit to:: ICF Allergies/Adverse Reactions: Allergies No Known Allergies Allergy (Verified 05/24/17 16:45) Admitting Diagnosis: Dementia with behavioral disturbance Admitting Physician: Elena Tamez MD Attending Physician: Elena Tamez MD Code Status: Full Code Anticiapted Length of Stay: greater than 30 days Rehab Potential: fair Rehab Prognosis: fair Diet: 05/24/17 Dinner Regular Diet [DIET] Diet Modifications: May use Facility Protocol or Standing Orders: Yes May have flu vaccine: Yes Evaluations/Treatment: Psychiatric, as needed Snf Certification: I certify that SNF services are required to be given on an Inpatient basis because of the patients need for residential care on a continuing basis for the condition(s) for which he/she received inpatient hospital services prior to his/her transfer to the SNF. SNF inpatient care is necessary for the following reasons Indication for Snf: Not Applicable - Additional Information In Event of Arrest: Start CPR,call 911,send patient to the ER Resident is Aware of Diagnosis: Yes Referrals: Maren Horn Dr. [Other] (Dr. Suyapa Horn on 06/14/17 at 1:00 pm for Mental Health follow-up. [facility] [place] [address]) Tanvir Mobley [Family Provider] - (Dr. Tha Mobley on 06/08/17 at 11:00 am for Hosp. follow-up. [facility] [address] [place] [address])
--- NOTE | 2017-06-01 14:43 | Neuropsychiatric Disch Summary ---
Discharge Information Date of admission: 05/24/17 18:47 Attending Physician: Elena Tamez MD Primary care physician: Tanvir Mobley Consults: 05/24/17 19:16 Case Management Consult [CONS] Routine Reason For Exam: Medical comorbidities Physician Consult [CONS] Routine Consulting Provider: Mian Cordova Reason For Exam: Medical comorbidities Ordering Provider has Notified Supervisor Ovens: No Comment: Nursing - plesae notify - Discharge Diagnosis (1) Unspecified psychosis Status: Acute (2) Neurocognitive disorder Status: Acute (3) Major depressive disorder Status: Chronic Psychosis, unspecified Major neurocognitive disorder, hx of Alzheimer's, moderate, with behavioral disturbance Hx of MDD, recurrent, severe (R/O psychotic features) - Laboratory Labs: 05/27/17 07:18 05/27/17 07:18 Date of Admission: 05/24/17 18:47 History of Present Illness: Patient is a 61-year-old male who was [place] [facility] due to increased behaviors and bizarre child-like behavior (such as pouring milk on people's plates, throwing food) at [employer]. He has also been aggressive towards others at the facility. Per hospitalist: "He was medically cleared through [facility], with lab work and CT head. Labs were overwhelmingly unremarkable with the exception of mild normocytic anemia. CT head upon this providers review failed to show any acute abnormalities, though official report is pending at the time of this H&P. He had healing abrasions and scabbed lesions to his face, primarily around his right eye, nose, and right forehead - though he was unable to comment on this. ( Nursing staff report a fall on 05/21/17.) He denied any recent illnesses, fever or chills. He states that his appetite has been good (though he was observed just pushing his pancake around on his plate this morning) but occasionally has some ill-defined abdominal pain. He states that he's had chest pain twice in his life but he denies heart cath. He denies difficulty breathing. He states that his legs sometimes are swollen. He states that he's had the "normal" surgeries. He denied any medical problems." On interview, patient is disorganized and able to participate in a limited fashion. He answers many of my questions logically/nonsensically. At one point, he makes a statement that he'll probably drown in the next week. I attempted to do FNF and he was unable to follow even simple directions. He denies all symptoms (SI, HI, AVH, paranoia) and says "I don't know" in regards too mood, why he is here, etc. He mumbles to himself and appears to be responding to internal stimuli though he denies it. No stiffness/EPS elicited upon physical exam. No gross tremor. CT +/- contrast on 05/24/17 showed incidental cavum septa pellucidum, signs of chronic microsvascular ischemia. Patient was reportedly hospitalized at [facility] in his 20s. He held a job at [employer] from 1986 to being let go unexpectedly 6 months ago. Home meds: Namenda XR 14mg daily, Xanax 0.5mg PO BID PRN, Zoloft 50mg daily. Nursing staff report patient was more restless this morning, mumbling to himself. He was given Ativan 0.5mg PO last night for increased anxiety, exit- seeking. Hospital Course This is a general summary of the patient's hospital course. For more details refer to the complete medical record. Hospital course: 05/25 Agree with admission to [facility]. Folate & Vit B12 pending. VSS, medically cleared. CT head reviewed - no acute findings. Provide safe & supportive environment. Psych: Started Risperdal 0.5mg PO BID to target disorganization, psychosis. Then increased Zoloft to 100mg PO daily. 05/29/17 Psych- Pt doing well today. Continue current care 05/30/17 Psych- Pt doing well. Continue current care 05/31/17 Psych: Continue current care, SW/CM to finalize discharge arrangements. 06/01/17 Psych: Continue current care, plan to discharge today back to memory care at [facility] with psychiatric f/u with [facility]. Resuscitation Status: Full Code Discharge Plan - Med Rec/Dispo Referrals/Follow Up: Maren Horn Dr. [Other] (Dr. Suyapa Horn on 06/14/17 at 1:00 pm for Mental Health follow-up. [facility] [place] [address]) Madelaine Duran APRN [Other] (Madelaine RogerCHITRA malave on 06/23/17 at 1:00 pm for Med Management. . [facility] [address] [place] [address]) Tanvir Mobley [Family Provider] - (Dr. Tha Mobley on 06/08/17 at 11:00 am for Hosp. follow-up. [facility] [address] [place] [address]) Additional Instructions: IN CASE OF PSYCHIATRIC EMERGENCY, CONTACT GENERATIONS STAFF AT [phone] ( available 24 hrs daily). Prescriptions: New RisperiDONE ODT [RisperDAL M] 0.5 mg PO BID 30 Days #60 tab Sertraline [Zoloft] 100 mg PO DAILY 30 Days #30 tab Memantine [Namenda] 10 mg PO DAILY 30 Days #30 tab Discontinued Sertraline [Zoloft] 50 mg PO DAILY ALPRAZolam [Xanax] 0.5 mg PO BID PRN PRN Reason: Anxiety Memantine HCl [Namenda Xr] 14 mg PO DAILY No Action Acetaminophen [Tylenol] 650 mg PO Q4H PRN PRN Reason: Pain Milk of Magnesia [Mom] 45 ml PO DAILY PRN PRN Reason: Constipation CALCIUM CARBONATE Chewable [Tums] 1,000 mg PO TID PRN PRN Reason: Prn Orders Multivit-Min/FA/Lycopen/Lutein [Certavite Sr-Antioxidant Tab] 1 each PO DAILY - Disposition 04 To [facility] Home/Facility - Dismissal Complete Discharge Instructions are:: Complete
--- NOTE | 2017-06-01 14:43 | Neuropsych Progress Note ---
[facility] Subjective Date: 06/02/17 - Sujective/Severity of Illness Subjective: Patient seen and chart reviewed. Case discussed with treatment team. On interview, patient is pleasant though confused, and affect is significantly brighter than last week. He reports that his mood is "okay" and denies any physical complaints. Patient denies any SI, HI or AVH. Patient denies any adverse side effects related to psychotropic medications. Nursing staff report patient has not had any significant behavioral difficulties on the unit. Patient has been adherent with medications. Patient slept 7.25 hours overnight. VSS. Patient is eating well. Psychotropic PRNs required in the past 24 hours: none. I met with patient's sister, who reports she sees an improvement in though organization and mood/behavior. We reviewed his medication list and she would like psychiatric f/u, which was arranged for her at time of discharge. No further questions/concerns and she thanked us for our care. Start Time: 09:20 Stop Time: 09:40 Mental Status Exam Vitals: Last Vital Signs Temp 98 F 06/01/17 08:28 Pulse 89 06/01/17 08:28 Resp 16 06/01/17 08:28 BP 103/72 06/01/17 08:28 Pulse Ox 92 06/01/17 08:28 Height: 1.78 m Weight: 101.8 kg - Mental Status Exam Muscle Strength/Tone: Normal Dressing: Casual Grooming: Disheveled Attitude: Cooperative Motor Activity: Retardation Eye Contact: Fair Speech: Slowed Volume: Soft Rhythm: Mumbled Orientation: Disoriented to time, Disoriented to situation, Oriented to person, Oriented to place Mood: Neutral Affect: Relaxed, Blunted Rate of Thoughts: Delayed Thought Organization: Organized (much moreso than upon admission), Confused Associations: Illogical Abstract Reasoning: Impaired, concrete Computation: Poor Computation Thought Content: Normal (other than confusion) Perception/Psychotic: Hx psychosis, not current Current Hallucinations: Auditory Language: Naming Impaired Fund of Knowledge: Poor fund of knowledge Memory: Poor-immediate, Poor-recent, Poor-remote Suicidal Ideation: Denies Homicidal Ideation: Denies Insight: Impaired Judgement: Impaired Impulse Control: Good - Laboratory Result Diagrams: 05/27/17 07:18 05/27/17 07:18 Assessment and Plan (1) Unspecified psychosis Qualifiers: Psychosis type: unspecified psychosis type Qualified Code(s): F29 - Unspecified psychosis not due to a substance or known physiological condition Status: Acute (2) Neurocognitive disorder Problem details: Hx of Alzheimer's, moderate, with behavioral disturbance Status: Acute (3) Major depressive disorder Qualifiers: Major depression recurrence: recurrent Major depression episode severity: moderate Status: Chronic Continue current care, plan to discharge today back to memory care at [facility], [place] with psychiatric f/u with [facility]. Hospital Course Summary Disclaimer: The visit summary below is not to be considered part of the above Progress Note. Hospital Course: 05/25 Agree with admission to [facility]. Folate & Vit B12 pending. VSS, medically cleared. CT head reviewed - no acute findings. Provide safe & supportive environment. Psych: Started Risperdal 0.5mg PO BID to target disorganization, psychosis. Then increased Zoloft to 100mg PO daily. 05/29/17 Psych- Pt doing well today. Continue current care 05/30/17 Psych- Pt doing well. Continue current care 05/31/17 Psych: Continue current care, MECHELLE/CM to finalize discharge arrangements. 06/01/17 Psych: Continue current care, plan to discharge today back to memory care at [facility], [place] with psychiatric f/u with [facility].
== END 2017-06-01 10:30 | DRG 885 ==
LOC: ED 16:14 → GEN 18:47
PROVIDERS: ADMIT Psychiatry & Neurology Psychiatry; ATTEND Psychiatry & Neurology Psychiatry